=== PATIENT | female | born 1970 | race Two or more races ===

== ENCOUNTER 2020-09-18 07:15 | Outpatient (REF) | payer OTHER, SELFPAY ==
[2020-09-18 11:22] LABS: Hematocrit 39.7 % (37-47); Hemoglobin 12.8 g/dl (12.0-16.0); Mean Corpuscular HGB Conc 32.2 g/dl (31.0-35.0); Mean Corpuscular Volume 93.2 fL (80-98); Platelet Count 184 X10*3/uL (160-400); Red Blood Count 4.26 X10*6/uL (4.20-5.50); Red Cell Distribution Width 12.2 % (11.0-16.0)
[2020-09-18 11:30] LABS: Glucose Urine UA NEG (NEG); Leukocyte Esterase Urine NEG (NEG); Nitrite Urine NEG (NEG); PH 7.5 (5.0-8.0); Urine Blood NEG (NEG); Urine Ketones NEG (NEG); Urine Protein NEG (NEG-TRACE)
[2020-09-18 11:32] LABS: Appearance Urine CLEAR; Color Urine STRAW
[2020-09-18 11:42] LABS: Bacteria Urine TRACE /LPF; RBC Urine 0 /HPF (0); Squamous Epithelial Cell Urine 2+ /LPF; WBC Urine 0-2 /HPF (0-4)
[2020-09-18 11:43] LABS: Alanine Aminotransferase 23 U/L (0-31); Albumin Level 4.5 g/dL (3.5-5.0); Alkaline Phosphatase 76 U/L (39-117); Anion Gap 10 (12-20); Aspartate Amino Transferase 29 U/L (5-31); Bilirubin Total 0.5 mg/dL (0.0-1.0); Blood Urea Nitrogen 10 mg/dL (9-16); Calcium 9.5 mg/dL (8.4-10.2); Carbon Dioxide 32 mmol/L (22-29); Chloride 100 mmol/L (96-108); Cholesterol 246 mg/dL; Estimated Glomerular Filt Rate > 60; Glucose Fasting 92 mg/dL (60-99); HDL Cholesterol 77 mg/dL; LDL Cholesterol Calculated 151 mg/dl; Potassium 4.1 mmol/l (3.3-5.1); Sodium 138 mmol/L (135-145); Total Protein 7.5 g/dL (6.5-8.0); Triglycerides 90 mg/dL
[2020-09-18 12:11] LABS: Thyroid Stimulating Hormone 7.09 uIU/mL (0.32-4.0)
== END 2020-09-18 07:16 | disposition home or self-care (01) ==
LOC: HO.HMGCLDS 07:15
PROVIDERS: PCP Internal Medicine; Visit Provider Internal Medicine
DX: Z00.00 Encounter for general adult medical examination without abnormal findings (principal)
CPT/HCPCS: 36415; 80053; 80061; 81001; 84443; 85027

== ENCOUNTER 2020-12-22 08:26 | Outpatient (REF) | payer OTHER, SELFPAY ==
--- NOTE | ~2020-12-22 | US_ITS ---
EXAMINATION: US THYROID CLINICAL INFORMATION: Nontoxic goiter, unspecified COMPARISON: None TECHNIQUE: Linear transducer grayscale and color Doppler examination with attention to the region of the thyroid. FINDINGS: SIZE: Measurements of the thyroid lobes and nodules are given in sagittal, anteroposterior and transverse dimensions respectively. Right Thyroid Lobe: 4.14 x 0.99 x 1.01 cm, volume 2.18 mL. Parenchyma: The gland echotexture is heterogeneous. Thyroid vascularity is increased. Left Thyroid Lobe: 4.04 x 0.736 x 1.12 cm, volume 1.74 mL. Parenchyma: The gland echotexture is heterogeneous. Thyroid vascularity is increased. Isthmus: 0.26 cm in maximum AP dimension. Estimated total number of nodules greater than or equal to 1 cm: 0. No focal thyroid nodule is seen. NODES: No lymphadenopathy is seen in the tissue surrounding the thyroid gland. US/US thyroid IMPRESSION: Small slightly heterogeneous hypervascular thyroid gland. No focal nodule seen.
== END 2020-12-22 08:27 | disposition home or self-care (01) ==
LOC: HO.HMGCX 08:26
PROVIDERS: PCP Internal Medicine; Visit Provider Internal Medicine
DX: Z00.00 Encounter for general adult medical examination without abnormal findings (principal); E04.9 Nontoxic goiter, unspecified
CPT/HCPCS: 76536

== ENCOUNTER 2021-12-03 07:52 | Outpatient (REF) | payer OTHER, SELFPAY ==
[2021-12-03 11:47] LABS: Appearance Urine CLEAR; Color Urine YELLOW; Glucose Urine UA NEG (NEG); Leukocyte Esterase Urine TRACE (NEG); Nitrite Urine NEG (NEG); PH 7.5 (5.0-8.0); Urine Blood NEG (NEG); Urine Ketones NEG (NEG); Urine Protein NEG (NEG-TRACE)
[2021-12-03 11:57] LABS: Hematocrit 38.5 % (37.0-47.0); Hemoglobin 12.9 g/dl (12.0-16.0); Mean Corpuscular HGB Conc 33.5 g/dl (31.0-35.0); Mean Corpuscular Hemoglobin 30.6 pg (27.0-33.0); Mean Corpuscular Volume 91.4 fL (80.0-98.0); Mean Platelet Volume 10.7 fL (9.4-12.3); Platelet Count 219 X10*3/uL (160-400); Red Blood Count 4.21 X10*6/uL (4.20-5.50); Red Cell Distribution Width 12.1 % (11.0-16.0); White Blood Count 4.2 X10*3/uL (4.8-10.8)
[2021-12-03 12:00] LABS: RBC Urine 0-2 /HPF (0); WBC Urine 0-2 /HPF (0-4)
[2021-12-03 12:01] LABS: Squamous Epithelial Cell Urine 1+ /LPF
[2021-12-03 12:22] LABS: TSH reflex Free T4 1.64 uIU/mL (0.32-4.0); TSH reflex Free T4 (Prenatal) 1.64 uIU/mL (0.32-4.0)
[2021-12-03 12:30] LABS: Alanine Aminotransferase 21 U/L (0-31); Albumin Level 4.4 g/dL (3.5-5.0); Alkaline Phosphatase 77 U/L (39-117); Anion Gap 12 (12-20); Aspartate Amino Transferase 29 U/L (5-31); Bilirubin Total 0.8 mg/dL (0.0-1.0); Blood Urea Nitrogen 13 mg/dL (9-16); Carbon Dioxide 26 mmol/L (22-29); Chloride 101 mmol/L (96-108); Cholesterol 228 mg/dL; Estimated Glomerular Filt Rate > 60; Glucose Fasting 91 mg/dL (60-99); HDL Cholesterol 76 mg/dL; LDL Cholesterol Calculated 141 mg/dl; Potassium 4.4 mmol/L (3.3-5.1); Sodium 135 mmol/L (135-145); Total Protein 7.6 g/dL (6.5-8.0); Triglycerides 57 mg/dL
== END 2021-12-03 07:53 | disposition home or self-care (01) ==
LOC: HO.HMGCLDS 07:52
PROVIDERS: Visit Provider Internal Medicine
DX: Z00.00 Encounter for general adult medical examination without abnormal findings (principal); E04.9 Nontoxic goiter, unspecified; E78.5 Hyperlipidemia, unspecified
CPT/HCPCS: 36415; 80053; 80061; 81001; 84443; 85027

== ENCOUNTER 2021-12-12 11:51 | Outpatient (REF) | payer OTHER, SELFPAY ==
[2021-12-12 13:43] LABS: Appearance Urine CLEAR; Color Urine YELLOW; Glucose Urine UA NEG (NEG); Leukocyte Esterase Urine NEG (NEG); Nitrite Urine NEG (NEG); PH 7.5 (5.0-8.0); Specific Gravity - Urine 1.015 (1.005-1.025); Urine Blood NEG (NEG); Urine Ketones NEG (NEG); Urine Protein NEG (NEG-TRACE)
[2021-12-12 13:45] LABS: Hematocrit 37.1 % (37.0-47.0); Hemoglobin 12.4 g/dl (12.0-16.0); Mean Corpuscular HGB Conc 33.4 g/dl (31.0-35.0); Mean Corpuscular Hemoglobin 30.5 pg (27.0-33.0); Mean Corpuscular Volume 91.4 fL (80.0-98.0); Mean Platelet Volume 10.3 fL (9.4-12.3); Platelet Count 186 X10*3/uL (160-400); Red Blood Count 4.06 X10*6/uL (4.20-5.50); White Blood Count 4.4 X10*3/uL (4.8-10.8)
[2021-12-12 13:54] LABS: RBC Urine 0 /HPF (0); Squamous Epithelial Cell Urine 2+ /LPF; WBC Urine 0-2 /HPF (0-4)
[2021-12-12 14:03] LABS: Alanine Aminotransferase 20 U/L (0-31); Albumin Level 4.4 g/dL (3.5-5.0); Alkaline Phosphatase 79 U/L (39-117); Anion Gap 11 (12-20); Aspartate Amino Transferase 29 U/L (5-31); Bilirubin Total 0.7 mg/dL (0.0-1.0); Blood Urea Nitrogen 8 mg/dL (9-16); Calcium 9.9 mg/dL (8.4-10.2); Carbon Dioxide 30 mmol/L (22-29); Chloride 98 mmol/L (96-108); Cholesterol 210 mg/dL; Estimated Glomerular Filt Rate > 60; Glucose Fasting 87 mg/dL (60-99); HDL Cholesterol 68 mg/dL; LDL Cholesterol Calculated 128 mg/dl; Potassium 4.5 mmol/L (3.3-5.1); Sodium 134 mmol/L (135-145); Total Protein 7.3 g/dL (6.5-8.0); Triglycerides 71 mg/dL
[2021-12-12 14:25] LABS: Vitamin D 25-OH Total 40.4 ng/mL (>30)
[2021-12-12 14:31] LABS: Vitamin B12 527 pg/mL (200-900)
== END 2021-12-12 11:52 | disposition home or self-care (01) ==
LOC: HO.HMGCLDS 11:51
PROVIDERS: PCP Internal Medicine; Visit Provider Internal Medicine
DX: Z00.00 Encounter for general adult medical examination without abnormal findings (principal); E78.5 Hyperlipidemia, unspecified
CPT/HCPCS: 36415; 80053; 80061; 81001; 82306; 82607; 82746; 84443; 85027

== ENCOUNTER 2021-12-24 07:27 | Outpatient (REF) | payer OTHER, SELFPAY ==
[2021-12-24 11:37] LABS: Anion Gap 12 (12-20); Blood Urea Nitrogen 13 mg/dL (9-16); Calcium 9.8 mg/dL (8.4-10.2); Carbon Dioxide 27 mmol/L (22-29); Chloride 102 mmol/L (96-108); Estimated Glomerular Filt Rate > 60; Glucose Random 89 mg/dL (60-115); Potassium 4.3 mmol/L (3.3-5.1); Sodium 137 mmol/L (135-145)
== END 2021-12-24 07:28 | disposition home or self-care (01) ==
LOC: HO.HMGCLDS 07:27
PROVIDERS: Visit Provider Internal Medicine
DX: E87.1 Hypo-osmolality and hyponatremia (principal)
CPT/HCPCS: 36415; 80048

== ENCOUNTER 2022-07-26 12:09 | Outpatient (REF) | payer OTHER, SELFPAY ==
[2022-07-26 13:53] LABS: MANUAL DIFF FLAG NO
[2022-07-26 13:58] LABS: Basophils Absolute Auto 0.1 X10*3/uL (0.0-0.2); Basophils Percent Auto 0.8 % (0-2); Eosinophils Absolute Auto 0.6 X10*3/uL (0.0-0.4); Eosinophils Percent Auto 9.7 % (0-4); Hematocrit 37.8 % (37.0-47.0); Hemoglobin 12.7 g/dl (12.0-16.0); Lymphocytes Absolute Auto 1.6 X10*3/uL (1.2-4.9); Lymphocytes Percent Auto 24.8 % (20-40); Mean Corpuscular HGB Conc 33.6 g/dl (31.0-35.0); Mean Corpuscular Volume 89.2 fL (80.0-98.0); Mean Platelet Volume 10.5 fL (9.4-12.3); Monocytes Absolute Auto 0.5 X10*3/uL (0.1-1.2); Monocytes Percent Auto 7.8 % (2-11); Neutrophils Absolute Auto 3.6 x10*3/uL (2.0-8.3); Neutrophils Percent Auto 56.9 % (45-73); Platelet Count 211 X10*3/uL (160-400); Red Blood Count 4.24 X10*6/uL (4.20-5.50); Red Cell Distribution Width 11.9 % (11.0-16.0); White Blood Count 6.4 X10*3/uL (4.8-10.8)
[2022-07-26 14:24] LABS: Alanine Aminotransferase 17 U/L (0-31); Albumin Level 4.5 g/dL (3.5-5.0); Alkaline Phosphatase 85 U/L (39-117); Anion Gap 17 (12-20); Aspartate Amino Transferase 27 U/L (5-31); Bilirubin Total 0.8 mg/dL (0.0-1.0); Blood Urea Nitrogen 9 mg/dL (9-16); Calcium 9.9 mg/dL (8.4-10.2); Carbon Dioxide 25 mmol/L (22-29); Chloride 99 mmol/L (96-108); Cholesterol 222 mg/dL; Estimated Glomerular Filt Rate > 60; Glucose Fasting 88 mg/dL (60-99); HDL Cholesterol 73 mg/dL; LDL Cholesterol Calculated 139 mg/dl; Potassium 4.3 mmol/L (3.3-5.1); Sodium 137 mmol/L (135-145); Total Protein 7.5 g/dL (6.5-8.0); Triglycerides 50 mg/dL
[2022-07-26 14:43] LABS: TSH reflex Free T4 1.24 uIU/mL (0.32-4.0)
== END 2022-07-26 12:10 | disposition home or self-care (01) ==
LOC: HO.HMGCLDS 12:09
PROVIDERS: PCP Internal Medicine; Visit Provider Internal Medicine
DX: E87.1 Hypo-osmolality and hyponatremia (principal); E78.5 Hyperlipidemia, unspecified; E04.9 Nontoxic goiter, unspecified
CPT/HCPCS: 36415; 80053; 80061; 84443; 85025

== ENCOUNTER 2022-12-09 08:23 | Outpatient (REF) | payer OTHER, SELFPAY ==
[2022-12-09 12:43] LABS: Cholesterol 227 mg/dL; HDL Cholesterol 80 mg/dL; LDL Cholesterol Calculated 138 mg/dl; Triglycerides 47 mg/dL
[2022-12-09 12:49] LABS: TSH reflex Free T4 1.33 uIU/mL (0.32-4.0)
== END 2022-12-09 08:24 | disposition home or self-care (01) ==
LOC: HO.HMGCLDS 08:23
PROVIDERS: PCP Internal Medicine; Visit Provider Internal Medicine
DX: E04.9 Nontoxic goiter, unspecified (principal); E78.5 Hyperlipidemia, unspecified
CPT/HCPCS: 36415; 80061; 84443

== ENCOUNTER 2022-12-16 10:12 | Outpatient (REF) | payer OTHER, SELFPAY ==
[2022-12-16 12:27] LABS: Alanine Aminotransferase 18 U/L (0-31); Albumin Level 4.3 g/dL (3.5-5.0); Alkaline Phosphatase 78 U/L (39-117); Anion Gap 10 (12-20); Aspartate Amino Transferase 24 U/L (5-31); Bilirubin Total 0.6 mg/dL (0.0-1.0); Blood Urea Nitrogen 11 mg/dL (9-16); Calcium 9.3 mg/dL (8.4-10.2); Carbon Dioxide 27 mmol/L (22-29); Chloride 102 mmol/L (96-108); Estimated Glomerular Filt Rate > 60; Glucose Fasting 82 mg/dL (60-99); Potassium 3.9 mmol/L (3.3-5.1); Sodium 135 mmol/L (135-145)
[2022-12-16 12:44] LABS: Folate 13.3 ng/mL (> or = 4.0); Vitamin B12 863 pg/mL (200-900); Vitamin D 25-OH Total 35.7 ng/mL (>30)
== END 2022-12-16 10:13 | disposition home or self-care (01) ==
LOC: HO.HMGCLDS 10:12
PROVIDERS: PCP Internal Medicine; Visit Provider Internal Medicine
DX: E87.1 Hypo-osmolality and hyponatremia (principal); E53.8 Deficiency of other specified B group vitamins; E55.9 Vitamin D deficiency, unspecified
CPT/HCPCS: 36415; 80053; 82306; 82607; 82746

== ENCOUNTER 2022-12-16 11:09 | Outpatient (REF) | payer OTHER, SELFPAY ==
[2022-12-20 05:23] LABS: HPV mRNA E6/E7 Not Detected (Not Detected)
== END 2022-12-16 11:10 | disposition home or self-care (01) ==
LOC: HO.LNP 11:09
PROVIDERS: Visit Provider Internal Medicine
DX: Z01.419 Encounter for gynecological examination (general) (routine) without abnormal findings (principal); E53.8 Deficiency of other specified B group vitamins; E55.9 Vitamin D deficiency, unspecified
CPT/HCPCS: 87624; 88142

== ENCOUNTER 2023-08-11 09:17 | Outpatient (AMB) | payer OTHER, SELFPAY ==
[2023-08-11 09:30] VITALS: BP 110/74; PULSE 87; O2SAT 99; BMI 21.3
--- NOTE | 2023-08-11 09:30 | MHC.PC.OV ---
Vital Signs 08/11/23 09:30 Height 5 ft 7 in Weight 136 lb BMI 21.3 BP 110/74 Blood Pressure Location Rt brachial Position Sitting Pulse 87 Pulse Source Pulse Oximeter Pulse Oximetry (%) 99 Oxygen Delivery Method Room Air Intake Visit Reasons: Pre-op Cataract 08/18 Intake Note: Pt is here today for preop visit. Pt is having cataract surgery on 09/01/23 on L eye. Allergies No Known Allergies Allergy (Verified 08/11/23 09:31) Tobacco use date assessed: 08/11/23 Dental Screening Dental Screen Date: 08/11/23 Did you have a dental visit in the last 12 months?: Yes Did you have a dental problem in the last 6 months where you did not have access to dental care?: No Was dental information given to patient?: Patient has dentist HPI Pre-op Cataract 08/18 HPI Details Pt presents for preop cataract surgery. Pt's witnessed apnea episode. [facility] Medical History (Updated 08/11/23 @ 10:10 by Eli Iqbal MD) Hyperlipidemia Hypothyroidism Annual physical exam Surgical History No pertinent past surgical history Hx of colonoscopy Family History Father No problems noted. Mother Heart problem Household Members Other:: , 2 sons(28. 22) and 1 daughter( 19), [employer] student Housing: House Patient Tobacco Use Status: Never used Tobacco e-Cigarette/Vaping Use: Never Used Current occupational status: employed Cognitive needs: No Hearing needs: No Vision needs: Yes Questionnaire Thrive Questionnaire Date Thrive assessed: 12/16/22 AUDIT C Alcohol Use Questionnaire (AUDIT-C) 1. How often do you have a drink containing alcohol?: Never 3. How often do you have six or more drinks on one occasion?: Never Total Score: 0 TYRESE-7 AMB Questionnaire TYRESE-7 Date TYRESE - 7 assessed: 12/16/22 Source: Developed by Drs. Wilberto Anton, Amber Martinez, Daniel Trammell and colleagues, with an educational alisa from [employer]. Review of Systems Const All systems reviewed & are unremarkable except as noted in HPI and below Reports no additional complaints Eyes Reports no additional complaints ENT Reports no additional complaints Card Reports no additional complaints Resp Reports no additional complaints GI Reports no additional complaints Physical exam (Primary Care) Vital Signs: Last Vital Signs Pulse 87 08/11/23 09:30 BP 110/74 08/11/23 09:30 Pulse Ox 99 08/11/23 09:30 Oxygen Delivery Method Room Air 08/11/23 09:30 BMI result Body Mass Index 21.3 Tobacco/Smoking Status: Tobacco use Status Tobacco use date assessed 08/11/23 08/11/23 09:32 Patient Tobacco Use Status Never used Tobacco 08/11/23 09:32 e-Cigarette/Vaping Use Never Used 08/11/23 09:32 Thrive Assessment: Date of Thrive Assessment Date Thrive assessed 12/16/22 08/11/23 09:32 Const General: no acute distress HENMT Head: Yes normal to inspection Ears: hearing grossly normal bilaterally General nose exam: Normal external nose present Mouth: Normal oral and palatal mucosa present Throat: Yes posterior oropharynx normal Neck Neck: Yes no lymphadenopathy and Yes supple Resp Effort & Inspection: normal respiratory effort Auscultation: clear to auscultation bilaterally Cardio Rhythm: regular rhythm Heart sounds: S1 normal heart sound present GI Inspection: Yes normal to inspection Palpation (GI): Soft to palpation Percussion: Yes normal to percussion Auscultation: normal bowel sounds Assessment and Plan Assessment & Plan (1) Sleep apnea: Code(s): G47.30 - Sleep apnea, unspecified Plan: schedule home sleep studies (2) Goiter: Comment: hx of thyroid nudule bx>5 yrs ago Code(s): E04.9 - Nontoxic goiter, unspecified Plan: check thyroid US (3) Cataract: Code(s): H26.9 - Unspecified cataract Plan: Patient is medically cleared for cataract surgery. Orders: Orders RT home sleep study Today G47.30 - Sleep apnea, unspecified US thyroid Today E04.9 - Nontoxic goiter, unspecified Coding Level of Care Code Est Pt Level 4 (25955) Diagnoses Sleep apnea G47.30 Goiter E04.9 Cataract H26.9
== END 2023-08-11 10:13 | disposition home or self-care (01) ==
PROVIDERS: PCP Internal Medicine; Visit Provider Internal Medicine
DX: G47.30 Sleep apnea, unspecified (principal); E04.9 Nontoxic goiter, unspecified; H26.9 Unspecified cataract
CPT/HCPCS: 99214

== ENCOUNTER 2023-08-25 09:54 | Outpatient (REF) | payer OTHER, SELFPAY ==
--- NOTE | ~2023-08-25 | US_ITS ---
EXAMINATION: US THYROID CLINICAL INFORMATION: Nontoxic goiter, unspecified. COMPARISON: Thyroid ultrasound 12/22/2020. TECHNIQUE: Linear transducer grayscale and color Doppler examination with attention to the region of the thyroid. FINDINGS: SIZE: Measurements of the thyroid lobes and nodules are given in sagittal, anteroposterior and transverse dimensions respectively. Right Thyroid Lobe: 4.5 x 1.0 x 1.0 cm, volume 2.3 mL. Previously 4.1 x 1.0 x 1.0 cm, volume 2.2 mL. Parenchyma: The gland echotexture is heterogeneous. Thyroid vascularity is increased. Left Thyroid Lobe: 4.2 x 0.6 x 1.1 cm, volume 1.5 mL. Previously 4.0 x 0.7 x 1.1 cm, volume 1.7 mL. Parenchyma: The gland echotexture is heterogeneous. Thyroid vascularity is increased. Isthmus: 0.2 cm in maximum AP dimension. Previously 0.3 cm. No suspicious thyroid nodule is seen. NODES: No lymphadenopathy is seen in the tissue surrounding the thyroid gland. US/US thyroid IMPRESSION: Heterogeneous thyroid gland. No suspicious thyroid nodules. Diffusely heterogeneous, hypervascular thyroid gland. No suspicious thyroid nodule identified. ACR TI-RADS RECOMMENDATION REFERENCE: Ultrasound-guided fine-needle aspiration, follow up ultrasound, no further followup. * TR1 (0 point) and TR2 (2 points): No FNA or followup * TR3 (3 points): FNA if more than or equal to 2.5 cm in maximum dimension, follow up ultrasound in 1, 3 and 5 years if 1.5 to 2.4 cm in maximum dimension. * TR4 (4-6 points): FNA if more than or equal to 1.5 cm in maximum dimension, follow up ultrasound in 1, 2, 3 and 5 years if 1 to 1.4 cm in maximum dimension. * TR5 (more than or equal to 7 points): FNA if more than or equal to 1 cm in maximum dimension, follow up ultrasound every year for 5 years if 0.5 to 0.9 cm in maximum dimension. * TR3, TR4 or TR5 nodules that are below the size threshold for follow up receive no followup.
== END 2023-08-25 09:55 | disposition home or self-care (01) ==
LOC: HO.HMGCX 09:54
PROVIDERS: PCP Internal Medicine; Visit Provider Internal Medicine
DX: E04.9 Nontoxic goiter, unspecified (principal)
CPT/HCPCS: 76536

== ENCOUNTER 2023-12-10 08:02 | Outpatient (REF) | payer OTHER, SELFPAY ==
[2023-12-10 10:17] LABS: MANUAL DIFF FLAG NO
[2023-12-10 10:28] LABS: Basophils Absolute Auto 0.1 X10*3/uL (0.0-0.2); Eosinophils Absolute Auto 0.6 X10*3/uL (0.0-0.4); Eosinophils Percent Auto 12.4 % (0-4); Hematocrit 35.4 % (37.0-47.0); Hemoglobin 11.8 g/dl (12.0-16.0); Imm Gran Abs Auto 0.01 X10*3/uL (0.00-0.03); Imm Gran Pct Auto 0.2 % (0.0-0.4); Lymphocytes Absolute Auto 1.4 X10*3/uL (1.2-4.9); Mean Corpuscular HGB Conc 33.3 g/dl (31.0-35.0); Mean Corpuscular Hemoglobin 29.6 pg (27.0-33.0); Mean Corpuscular Volume 88.7 fL (80.0-98.0); Mean Platelet Volume 10.6 fL (9.4-12.3); Monocytes Absolute Auto 0.5 X10*3/uL (0.1-1.2); Monocytes Percent Auto 10.6 % (2-11); Neutrophils Absolute Auto 2.4 x10*3/uL (2.0-8.3); Neutrophils Percent Auto 47.8 % (45-73); Platelet Count 204 X10*3/uL (160-400); Red Blood Count 3.99 X10*6/uL (4.20-5.50); Red Cell Distribution Width 12.7 % (11.0-16.0); White Blood Count 5.1 X10*3/uL (4.8-10.8)
[2023-12-10 11:31] LABS: Alanine Aminotransferase 17 U/L (0-31); Albumin Level 4.2 g/dL (3.5-5.0); Alkaline Phosphatase 75 U/L (39-117); Anion Gap 9 (12-20); Aspartate Amino Transferase 26 U/L (5-31); Bilirubin Total 0.7 mg/dL (0.0-1.0); Blood Urea Nitrogen 10 mg/dL (9-16); Calcium 9.4 mg/dL (8.4-10.2); Carbon Dioxide 29 mmol/L (22-29); Chloride 100 mmol/L (96-108); Cholesterol 218 mg/dL (<200); Estimated Glomerular Filt Rate > 60; Glucose Fasting 79 mg/dL (60-99); HDL Cholesterol 81 mg/dL (>40); LDL Cholesterol Calculated 128 mg/dL (<100); Potassium 3.6 mmol/L (3.3-5.1); Sodium 134 mmol/L (135-145); Total Protein 7.2 g/dL (6.5-8.0); Triglycerides 48 mg/dL (<150)
[2023-12-10 11:40] LABS: TSH reflex Free T4 2.28 uIU/mL (0.32-4.0); Vitamin D 25-OH Total 33.5 ng/mL (>30)
== END 2023-12-10 08:03 | disposition home or self-care (01) ==
LOC: HO.HMGCLDS 08:02
PROVIDERS: PCP Internal Medicine; Visit Provider Internal Medicine
DX: Z00.00 Encounter for general adult medical examination without abnormal findings (principal); E78.5 Hyperlipidemia, unspecified; E55.9 Vitamin D deficiency, unspecified
CPT/HCPCS: 36415; 80053; 80061; 82306; 84443; 85025

== ENCOUNTER 2023-12-18 10:26 | Outpatient (AMB) | payer OTHER, SELFPAY ==
[2023-12-18 10:27] VITALS: BP 104/66; PULSE 80; O2SAT 96; BMI 21.1
--- NOTE | 2023-12-18 10:27 | MHC.PC.OV ---
Vital Signs 12/18/23 10:27 Height 5 ft 7 in Weight 135 lb BMI 21.1 BP 104/66 Blood Pressure Location Lt brachial Position Sitting Pulse 80 Pulse Source Pulse Oximeter Pulse Oximetry (%) 96 Oxygen Delivery Method Room Air Intake Visit Reasons: Annual PE Intake Note: Pt is here today for PE. Allergies No Known Allergies Allergy (Verified 12/18/23 10:30) Medication List - Last Reconciled 12/18/23 by Eli Iqbal MD levothyroxine 75 mcg PO DAILY Tobacco use date assessed: 12/18/23 Dental Screening Dental Screen Date: 12/18/23 Did you have a dental visit in the last 12 months?: Yes Did you have a dental problem in the last 6 months where you did not have access to dental care?: No Was dental information given to patient?: Patient has dentist HPI Annual PE HPI Details Patient presents for physical. She complains of increased urinary frequency and feeling of incomplete emptying the bladder. She reports chronic constipation. Patient denies hematochezia melena hematuria dysuria or urinary incontinence PFSH Medical History Hyperlipidemia Hypothyroidism Annual physical exam Surgical History No pertinent past surgical history Hx of colonoscopy Family History Father No problems noted. Mother Heart problem Social History Household Members Other:: , 2 sons(28. 22) and 1 daughter( 19), [employer] student Housing: House Patient Tobacco Use Status: Never used Tobacco e-Cigarette/Vaping Use: Never Used service: No Current occupational status: employed Cognitive needs: No Hearing needs: No Vision needs: Yes Questionnaire PHQ-9 Over the last 2 weeks, how often have you been bothered by any of the following problems? 1. Little interest or pleasure in doing things: not at all 2. Feeling down, depressed, or hopeless: not at all 3. Trouble falling or staying asleep, or sleeping too much: not at all 4. Feeling tired or having little energy: not at all 5. Poor appetite or overeating: not at all 6. Feeling bad about yourself - or that you are a failure or have let yourself or your family down: not at all 7. Trouble concentrating on things, such as reading the newspaper or watching television: not at all 8. Moving or speaking so slowly that other people could have noticed. Or the opposite - being so fidgety or restless that you have been moving around a lot more than usual: not at all 9. Thoughts that you would be better off or of hurting yourself in some way: not at all Total score: 0 Depression Screening Interpretation: Negative Depression Screening Done: Yes Source: Developed by Drs. Wilberto Anton, Amber Martinez, Daniel Trammell and colleagues, with an educational alisa from [employer]. Thrive Questionnaire Date Thrive assessed: 12/18/23 I am a: Patient What is your living situation today?: I have a steady place to live Within the past 12 months, did the food you bought not last and you didn't have the money to get more?: Never true Within the past 12 months, did you worry whether your food would run out before you got money to buy more?: Never true Do you have trouble paying for medicines?: No Do you have trouble getting transportation to medical appointments?: No Do you have trouble paying your heating and electricity bill?: No Do you have trouble taking care of your child, family member or friend?: No Do you have trouble with day-to-day activities such as bathing, preparing meals, shopping, managing finances, etc.?: No Are you currently unemployed and looking for a job?: No Are you interested in more education?: No Please select the resources that you would like help with: None THRIVE Score: 0 AUDIT C Alcohol Use Questionnaire (AUDIT-C) 1. How often do you have a drink containing alcohol?: Never 3. How often do you have six or more drinks on one occasion?: Never Total Score: 0 TYRESE-7 AMB Questionnaire TYRESE-7 Date TYRESE - 7 assessed: 12/18/23 Feeling nervous, anxious, or on edge: 0 = Not at all Not being able to stop or control worryin = Not at all Worrying too much about different things: 0 = Not at all Trouble relaxin = Not at all Being so restless that it is hard to sit still: 0 = Not at all Becoming easily annoyed or irritable: 0 = Not at all Feeling afraid as if something awful might happen: 0 = Not at all Total TYRESE-7 score (0-4 normal; 5-9 mild; 10-14 moderate; 15-21 severe): 0 Source: Developed by Drs. Wilberto Anton, Amber Martinez, Daniel Trammell and colleagues, with an educational alisa from [employer]. Review of Systems Const All systems reviewed & are unremarkable except as noted in HPI and below Reports no additional complaints Eyes Reports no additional complaints ENT Reports no additional complaints Card Reports no additional complaints Resp Reports no additional complaints GI Reports no additional complaints Reports no additional complaints Physical exam (Primary Care) Vital Signs: Last Vital Signs Pulse 80 12/18/23 10:27 BP 104/66 12/18/23 10:27 Pulse Ox 96 12/18/23 10:27 Oxygen Delivery Method Room Air 12/18/23 10:27 BMI result Body Mass Index 21.1 Tobacco/Smoking Status: Tobacco use Status Tobacco use date assessed 12/18/23 12/18/23 10:30 Patient Tobacco Use Status Never used Tobacco 12/18/23 10:30 e-Cigarette/Vaping Use Never Used 12/18/23 10:30 PHQ-9: PHQ-9 Score PHQ-9: Total score 0 12/18/23 10:33 Depression Screening Interpretation: Negative Thrive Assessment: Date of Thrive Assessment Date Thrive assessed 12/18/23 12/18/23 10:33 Const General: no acute distress HENMT Head: Yes normal to inspection Ears: hearing grossly normal bilaterally General nose exam: Normal external nose present Mouth: Normal oral and palatal mucosa present Throat: Yes posterior oropharynx normal Eyes General: appearance normal, both eyes and all related structures Neck Neck: Yes no lymphadenopathy and Yes supple Resp Effort & Inspection: normal respiratory effort Auscultation: clear to auscultation bilaterally Cardio Rhythm: regular rhythm Heart sounds: S1 normal heart sound present and S2 normal heart sound present GI Inspection: Yes normal to inspection Palpation (GI): Soft to palpation Percussion: Yes normal to percussion Auscultation: normal bowel sounds Assessment and Plan Assessment & Plan (1) Urinary frequency: Code(s): R35.0 - Frequency of micturition Plan: Check UA and bladder scan to rule out urinary retention., Kegler's exercises discussed with the patient (2) Anemia: Code(s): D64.9 - Anemia, unspecified Plan: For borderline low hemoglobin level iron studies will be obtained. The patient's iron deficiency repeat colonoscopy will be recommended (3) Hyperlipidemia: Code(s): E78.5 - Hyperlipidemia, unspecified Plan: Continue low-cholesterol diet (4) Mammogram declined: Comment: 01/06, negative breast ultrasound in [place] 09/06 Code(s): Z53.20 - Procedure and treatment not carried out because of patient's decision for unspecified reasons (5) Annual physical exam: Code(s): Z00.00 - Encounter for general adult medical examination without abnormal findings Plan: Well-balanced diet regular physical activity discussed with the patient. (6) Normal Pap smear: Comment: 01/05 Code(s): Z12.4 - Encounter for screening for malignant neoplasm of cervix Orders: Orders US bladder Today R35.0 - Frequency of micturition Complete Blood Count Auto Diff 6 Months D64.9 - Anemia, unspecified, E78.5 - Hyperlipidemia, unspecified Comprehensive [place]. Panel Fast 6 Months D64.9 - Anemia, unspecified, E78.5 - Hyperlipidemia, unspecified Comprehensive [place]. Panel Fast 1 Year D64.9 - Anemia, unspecified, E53.8 - Deficiency of other specified B group vitamins, E78.5 - Hyperlipidemia, unspecified, Z00.00 - Encounter for general adult medical examination without abnormal findings Complete Blood Count Auto Diff 1 Year D64.9 - Anemia, unspecified, E53.8 - Deficiency of other specified B group vitamins, E78.5 - Hyperlipidemia, unspecified, Z00.00 - Encounter for general adult medical examination without abnormal findings UA w Microscopic Today R35.0 - Frequency of micturition IRON PROFILE Today D64.9 - Anemia, unspecified Vitamin B12 and Folate Today D64.9 - Anemia, unspecified Lipid Panel 6 Months D64.9 - Anemia, unspecified, E78.5 - Hyperlipidemia, unspecified Lipid Panel 1 Year D64.9 - Anemia, unspecified, E53.8 - Deficiency of other specified B group vitamins, E78.5 - Hyperlipidemia, unspecified, Z00.00 - Encounter for general adult medical examination without abnormal findings TSH reflex Free T4 1 Year D64.9 - Anemia, unspecified, E53.8 - Deficiency of other specified B group vitamins, E78.5 - Hyperlipidemia, unspecified, Z00.00 - Encounter for general adult medical examination without abnormal findings IRON PROFILE 1 Year D64.9 - Anemia, unspecified, E53.8 - Deficiency of other specified B group vitamins, E78.5 - Hyperlipidemia, unspecified, Z00.00 - Encounter for general adult medical examination without abnormal findings Coding Level of Care Code Est Pt Prev Care 40-64y(42750) Diagnoses Urinary frequency R35.0 Anemia D64.9 Hyperlipidemia E78.5 Mammogram declined Z53.20 Annual physical exam Z00.00 Normal Pap smear Z12.4
== END 2023-12-18 11:09 | disposition home or self-care (01) ==
PROVIDERS: Visit Provider Internal Medicine
DX: R35.0 Frequency of micturition (principal); D64.9 Anemia, unspecified; E78.5 Hyperlipidemia, unspecified; Z53.20 Procedure and treatment not carried out because of patient's decision for unspecified reasons; Z00.00 Encounter for general adult medical examination without abnormal findings; Z12.4 Encounter for screening for malignant neoplasm of cervix
CPT/HCPCS: 99396

== ENCOUNTER 2023-12-18 10:54 | Outpatient (REF) | payer OTHER, SELFPAY ==
[2023-12-18 13:22] LABS: Iron 98 mcg/dL (30-160); Percent Iron Saturation 34 % (15-50); Total Iron Binding Capacity 290 mcg/dL (228-428); Unsaturated Iron Binding 192 ug/dL
[2023-12-18 13:38] LABS: Appearance Urine Clear; Color Urine Yellow; Glucose Urine UA Negative (Negative); Leukocyte Esterase Urine Negative (Negative); Nitrite Urine Negative (Negative); PH 6.5 (5.0-9.0); Urine Blood Negative (Negative); Urine Ketones Negative (Negative); Urine Protein Negative (Neg-Trace)
[2023-12-18 13:44] LABS: Bacteria Urine None Seen (None Seen); Hyaline Casts Urine 0-2 /LPF (0-2); RBC Urine 0-2 /HPF (0-2); Squamous Epithelial Cell Urine 0-2 /HPF (0-2); WBC Urine 0-5 /HPF (0-5)
[2023-12-18 13:54] LABS: Folate 10.9 ng/mL (> or = 4.0); Vitamin B12 866 pg/mL (200-900)
== END 2023-12-18 10:55 | disposition home or self-care (01) ==
LOC: HO.HMGCLDS 10:54
PROVIDERS: PCP Internal Medicine; Visit Provider Internal Medicine
DX: R35.0 Frequency of micturition (principal); D64.9 Anemia, unspecified
CPT/HCPCS: 36415; 81001; 82607; 82746; 83540

== ENCOUNTER 2024-01-05 08:50 | Outpatient (REF) | payer OTHER, SELFPAY ==
--- NOTE | ~2024-01-05 | US_ITS ---
EXAMINATION: US PELVIS LIMITED (BLADDER) CLINICAL INFORMATION: Frequency of micturition. Urinary retention. COMPARISON: None available. TECHNIQUE: Real-time imaging of the bladder. FINDINGS: BLADDER: Well distended and normal. Bilateral ureteral jets are demonstrated. Prevoid bladder volume is 186 mL. Postvoid bladder volume is 5 mL. Some views of the superior bladder were limited due to highly shadowing bowel. US/US bladder IMPRESSION: No significant post void residual.
== END 2024-01-05 08:51 | disposition home or self-care (01) ==
LOC: HO.HMGCX 08:50
PROVIDERS: PCP Internal Medicine; Visit Provider Internal Medicine
DX: R35.0 Frequency of micturition (principal)
CPT/HCPCS: 76857

== ENCOUNTER 2024-04-12 11:01 | Outpatient (AMB) | payer OTHER, SELFPAY ==
--- NOTE | 2024-04-12 11:02 | MHC.PC.OV ---
Vital Signs 04/12/24 11:03 Height 5 ft 7 in Weight 135 lb BMI 21.1 BP 112/74 Blood Pressure Location Rt brachial Position Sitting Pulse 70 Pulse Source Pulse Oximeter Pulse Oximetry (%) 98 Oxygen Delivery Method Room Air Intake Visit Reasons: Follow up Intake Note: Pt is here today for a follow up visit. Allergies No Known Allergies Allergy (Verified 04/12/24 11:07) Medication List - Last Reconciled 04/12/24 by Eli Iqbal MD levothyroxine 75 mcg PO DAILY Tobacco use date assessed: 04/12/24 Dental Screening Dental Screen Date: 12/18/23 HPI Follow up HPI Details Patient presents complaining of bilateral tingling sensation in the thumbs, 2nd and 3rd fingers on and off and occasionally sensation of electric shock from a left elbow to 4th and 5th fingers. 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 [facility] Medical History Hypothyroidism Hyperlipidemia Annual physical exam Surgical History No pertinent past surgical history Hx of colonoscopy Family History Father No problems noted. Mother Heart problem Social History Household Members Other:: , 2 sons(28. 22) and 1 daughter( 19), [employer] student Housing: House Patient Tobacco Use Status: Never used Tobacco e-Cigarette/Vaping Use: Never Used service: No Current occupational status: employed Cognitive needs: No Hearing needs: No Vision needs: Yes Questionnaire Thrive Questionnaire Date Thrive assessed: 12/18/23 AUDIT C Alcohol Use Questionnaire (AUDIT-C) 1. How often do you have a drink containing alcohol?: Never 3. How often do you have six or more drinks on one occasion?: Never Total Score: 0 TYRESE-7 AMB Questionnaire TYRESE-7 Date TYRESE - 7 assessed: 12/18/23 Source: Developed by Drs. Wilberto Anton, Amber Martinez, Daniel Trammell and colleagues, with an educational alisa from [employer]. Review of Systems Const All systems reviewed & are unremarkable except as noted in HPI and below ENT Reports no additional complaints Card Reports no additional complaints Resp Reports no additional complaints GI Reports no additional complaints Reports no additional complaints Physical exam (Primary Care) Vital Signs: Last Vital Signs Pulse 70 04/12/24 11:03 BP 112/74 04/12/24 11:03 Pulse Ox 98 04/12/24 11:03 Oxygen Delivery Method Room Air 04/12/24 11:03 BMI result Body Mass Index 21.1 Tobacco/Smoking Status: Tobacco use Status Tobacco use date assessed 04/12/24 04/12/24 11:08 Patient Tobacco Use Status Never used Tobacco 04/12/24 11:08 e-Cigarette/Vaping Use Never Used 04/12/24 11:04 Thrive Assessment: Date of Thrive Assessment Date Thrive assessed 12/18/23 04/12/24 11:04 HENMT Head: Yes normal to inspection Ears: hearing grossly normal bilaterally Mouth: Normal oral and palatal mucosa present Resp Effort & Inspection: normal respiratory effort Auscultation: clear to auscultation bilaterally Cardio Rhythm: regular rhythm Heart sounds: S1 normal heart sound present and S2 normal heart sound present GI Inspection: Yes normal to inspection Palpation (GI): Soft to palpation Extrem Right upper extremity: wrist Details: Tinel's negative and Phalen's negative Left upper extremity: wrist Assessment and Plan Assessment & Plan (1) Anemia: Code(s): D64.9 - Anemia, unspecified Plan: Monitor CBC iron count and B12 level. (2) Hypothyroidism: Code(s): E03.9 - Hypothyroidism, unspecified Plan: Continue levothyroxine (3) Carpal tunnel syndrome on both sides: Code(s): G56.03 - Carpal tunnel syndrome, bilateral upper limbs Plan: Patient was advised to use wrist splints at night if the symptoms persist she will be referred for nerve conduction study Orders: Orders Complete Blood Count Auto Diff Today D64.9 - Anemia, unspecified IRON PROFILE Today D64.9 - Anemia, unspecified Comprehensive [place]. Panel Fast Today D64.9 - Anemia, unspecified TSH reflex Free T4 Today E03.9 - Hypothyroidism, unspecified Coding Level of Care Code Est Pt Level 3 (96434) Diagnoses Anemia D64.9 Hypothyroidism E03.9 Carpal tunnel syndrome on both sides G56.03
[2024-04-12 11:03] VITALS: BP 112/74; PULSE 70; O2SAT 98; BMI 21.1
== END 2024-04-12 12:34 | disposition home or self-care (01) ==
LOC: HO.HMGC 11:02
PROVIDERS: PCP Internal Medicine; Visit Provider Internal Medicine
DX: D64.9 Anemia, unspecified (principal); E03.9 Hypothyroidism, unspecified; G56.03 Carpal tunnel syndrome, bilateral upper limbs
CPT/HCPCS: 99213

== ENCOUNTER 2024-04-12 11:57 | Outpatient (REF) | payer OTHER, SELFPAY ==
[2024-04-12 13:29] LABS: MANUAL DIFF FLAG NO
[2024-04-12 13:49] LABS: Basophils Absolute Auto 0.1 X10*3/uL (0.0-0.2); Eosinophils Absolute Auto 0.6 X10*3/uL (0.0-0.4); Hematocrit 38.2 % (37.0-47.0); Hemoglobin 12.9 g/dl (12.0-16.0); Imm Gran Abs Auto 0.01 X10*3/uL (0.00-0.03); Imm Gran Pct Auto 0.2 % (0.0-0.4); Lymphocytes Absolute Auto 1.2 X10*3/uL (1.2-4.9); Lymphocytes Percent Auto 22.8 % (20-40); Mean Corpuscular HGB Conc 33.8 g/dl (31.0-35.0); Mean Corpuscular Hemoglobin 30.1 pg (27.0-33.0); Mean Corpuscular Volume 89.3 fL (80.0-98.0); Mean Platelet Volume 10.3 fL (9.4-12.3); Monocytes Absolute Auto 0.6 X10*3/uL (0.1-1.2); Monocytes Percent Auto 11.2 % (2-11); Neutrophils Absolute Auto 2.7 x10*3/uL (2.0-8.3); Neutrophils Percent Auto 53.8 % (45-73); Platelet Count 215 X10*3/uL (160-400); Red Blood Count 4.28 X10*6/uL (4.20-5.50); Red Cell Distribution Width 12.5 % (11.0-16.0); White Blood Count 5.1 X10*3/uL (4.8-10.8)
[2024-04-12 14:18] LABS: Alanine Aminotransferase 22 U/L (0-31); Albumin Level 4.3 g/dL (3.5-5.0); Alkaline Phosphatase 80 U/L (39-117); Anion Gap 10 (12-20); Aspartate Amino Transferase 25 U/L (5-31); Bilirubin Total 0.5 mg/dL (0.0-1.0); Blood Urea Nitrogen 12 mg/dL (9-16); Carbon Dioxide 27 mmol/L (22-29); Chloride 104 mmol/L (96-108); Estimated Glomerular Filt Rate > 60; Glucose Fasting 97 mg/dL (60-99); Iron 82 mcg/dL (30-160); Percent Iron Saturation 28 % (15-50); Sodium 137 mmol/L (135-145); Total Iron Binding Capacity 289 mcg/dL (228-428); Total Protein 7.4 g/dL (6.5-8.0); Unsaturated Iron Binding 207 ug/dL
[2024-04-12 14:34] LABS: TSH reflex Free T4 2.46 uIU/mL (0.32-4.0)
== END 2024-04-12 11:58 | disposition home or self-care (01) ==
LOC: HO.HMGCLDS 11:57
PROVIDERS: PCP Internal Medicine; Visit Provider Internal Medicine
DX: E03.9 Hypothyroidism, unspecified (principal); D64.9 Anemia, unspecified
CPT/HCPCS: 36415; 80053; 83540; 84443; 85025

== ENCOUNTER 2024-06-18 09:40 | Outpatient (REF) | payer OTHER, SELFPAY ==
[2024-06-18 13:03] LABS: MANUAL DIFF FLAG NO
[2024-06-18 13:10] LABS: Basophils Absolute Auto 0.1 X10*3/uL (0.0-0.2); Eosinophils Absolute Auto 0.6 X10*3/uL (0.0-0.4); Eosinophils Percent Auto 11.8 % (0-4); Hematocrit 34.5 % (37.0-47.0); Hemoglobin 11.6 g/dl (12.0-16.0); Imm Gran Abs Auto 0.01 X10*3/uL (0.00-0.03); Imm Gran Pct Auto 0.2 % (0.0-0.4); Lymphocytes Absolute Auto 1.2 X10*3/uL (1.2-4.9); Lymphocytes Percent Auto 22.9 % (20-40); Mean Corpuscular HGB Conc 33.6 g/dl (31.0-35.0); Mean Corpuscular Hemoglobin 30.1 pg (27.0-33.0); Mean Corpuscular Volume 89.4 fL (80.0-98.0); Mean Platelet Volume 10.4 fL (9.4-12.3); Monocytes Absolute Auto 0.5 X10*3/uL (0.1-1.2); Monocytes Percent Auto 9.7 % (2-11); Neutrophils Absolute Auto 2.8 x10*3/uL (2.0-8.3); Neutrophils Percent Auto 54.4 % (45-73); Platelet Count 199 X10*3/uL (160-400); Red Blood Count 3.86 X10*6/uL (4.20-5.50); White Blood Count 5.2 X10*3/uL (4.8-10.8)
[2024-06-18 13:50] LABS: Alanine Aminotransferase 30 U/L (0-31); Albumin Level 4.1 g/dL (3.5-5.0); Alkaline Phosphatase 75 U/L (39-117); Anion Gap 12 (12-20); Aspartate Amino Transferase 37 U/L (5-31); Bilirubin Total 0.8 mg/dL (0.0-1.0); Blood Urea Nitrogen 8 mg/dL (9-16); Calcium 9.3 mg/dL (8.4-10.2); Carbon Dioxide 27 mmol/L (22-29); Chloride 100 mmol/L (96-108); Cholesterol 221 mg/dL (<200); Estimated Glomerular Filt Rate > 60; Glucose Fasting 75 mg/dL (60-99); HDL Cholesterol 80 mg/dL (>40); LDL Cholesterol Calculated 133 mg/dL (<100); Potassium 4.1 mmol/L (3.3-5.1); Sodium 135 mmol/L (135-145); Triglycerides 44 mg/dL (<150)
== END 2024-06-18 09:41 | disposition home or self-care (01) ==
LOC: HO.HMGCLDS 09:40
PROVIDERS: PCP Internal Medicine; Visit Provider Internal Medicine
DX: D64.9 Anemia, unspecified (principal); E78.5 Hyperlipidemia, unspecified
CPT/HCPCS: 36415; 80053; 80061; 85025

== ENCOUNTER 2024-12-13 12:21 | Outpatient (AMB) | payer OTHER, SELFPAY ==
--- NOTE | 2024-12-13 12:32 | A.OFFPC_ITS ---
Vital Signs 12/13/24 12:33 Height 5 ft 7 in Weight 137 lb BMI 21.5 BP 110/70 Blood Pressure Location Rt brachial Position Sitting Respiration 18 Pulse 80 Pulse Source Pulse Oximeter Temp 98.6 F Temp Source Oral Pulse Oximetry (%) 98 Oxygen Delivery Method Room Air Intake Visit Reasons: Headache Intake Note: Pt is here today for a sick visit. Pt c/o headaches on the back of her head for 6 months now. Allergies No Known Allergies Allergy (Verified 12/13/24 12:43) Medication List - Last Reconciled 12/13/24 by Eli Iqbal MD levothyroxine 75 mcg PO DAILY Tobacco use date assessed: 12/13/24 Dental Screening Dental Screen Date: 12/13/24 Did you have a dental visit in the last 12 months?: Yes Did you have a dental problem in the last 6 months where you did not have access to dental care?: No Was dental information given to patient?: Patient has dentist HPI Headache HPI Details Pt presents c/o occipital VALENZUELA pressure like lasting 20 min on and off for 6 months. Patient denies change in the vision nausea vomiting weakness numbness in extremities or change in balance. [facility] Medical History Hypothyroidism Hyperlipidemia Annual physical exam Surgical History No pertinent past surgical history Hx of colonoscopy Family History Father No problems noted. Mother Heart problem Social History Household Members Other:: , 2 sons(28. 22) and 1 daughter( 19), [employer] student Housing: House Patient Tobacco Use Status: Never used Tobacco e-Cigarette/Vaping Use: Never Used service: No Current occupational status: employed Cognitive needs: No Hearing needs: No Vision needs: Yes Questionnaire Thrive Questionnaire Date Thrive assessed: 12/18/23 AUDIT C Alcohol Use Questionnaire (AUDIT-C) 1. How often do you have a drink containing alcohol?: Never 3. How often do you have six or more drinks on one occasion?: Never Total Score: 0 TYRESE-7 AMB Questionnaire TYRESE-7 Date TYRESE - 7 assessed: 12/18/23 Source: Developed by Drs. Wilberto Anton, Amber Martinez, Daniel Trammell and colleagues, with an educational alisa from [employer]. Review of Systems Const All systems reviewed & are unremarkable except as noted in HPI and below Eyes Reports no additional complaints ENT Reports no additional complaints Card Reports no additional complaints Resp Reports no additional complaints GI Reports no additional complaints Reports no additional complaints Physical exam (Primary Care) Vital Signs: Last Vital Signs Temp 98.6 F 12/13/24 12:33 Pulse 80 12/13/24 12:33 Resp 18 12/13/24 12:33 BP 110/70 12/13/24 12:33 Pulse Ox 98 12/13/24 12:33 Oxygen Delivery Method Room Air 12/13/24 12:33 BMI result Body Mass Index 21.5 Tobacco/Smoking Status: Tobacco use Status Tobacco use date assessed 12/13/24 12/13/24 12:43 Patient Tobacco Use Status Never used Tobacco 12/13/24 12:43 e-Cigarette/Vaping Use Never Used 12/13/24 12:33 Thrive Assessment: Date of Thrive Assessment Date Thrive assessed 12/18/23 12/13/24 12:33 Const General: no acute distress HENMT Head: Yes normal to inspection Face and sinus: Yes normal facial exam Mouth: Normal oral and palatal mucosa present Throat: Yes posterior oropharynx normal Neck Neck: Yes no lymphadenopathy and Yes supple Resp Effort & Inspection: normal respiratory effort Auscultation: clear to auscultation bilaterally Cardio Rhythm: regular rhythm Heart sounds: S1 normal heart sound present and S2 normal heart sound present GI Inspection: Yes normal to inspection Palpation (GI): Soft to palpation Neuro Cranial nerves: Yes CN's II-XII intact bilaterally Motor exam (neuro): 5/5 motor strength present throughout Coordination: [id number]-[id number] test normal Romberg Test: Negative Coding Level of Care Code Est Pt Level 4 (09066) Diagnoses Hypothyroidism E03.9 Hyperlipidemia E78.5 Ovarian cyst N83.209 Tension headache G44.209 Assessment & Plan Assessment & Plan (1) Hypothyroidism: Code(s): E03.9 - Hypothyroidism, unspecified Category: Medical Plan: Continue levothyroxine for fasting blood work (2) Hyperlipidemia: Code(s): E78.5 - Hyperlipidemia, unspecified Category: Medical Plan: Continue low-cholesterol diet (3) Ovarian cyst: Code(s): N83.209 - Unspecified ovarian cyst, unspecified side Category: Medical Plan: For history of ovarian cyst obtain pelvic ultrasound (4) Tension headache: Code(s): G44.209 - Tension-type headache, unspecified, not intractable Category: Medical Plan: Stress management discussed with the patient, obtain blood work Orders: Orders TSH reflex Free T4 Today E03.9 - Hypothyroidism, unspecified, E53.8 - Deficiency of other specified B group vitamins, E55.9 - Vitamin D deficiency, unspecified, E78.5 - Hyperlipidemia, unspecified Lipid Panel Today E03.9 - Hypothyroidism, unspecified, E53.8 - Deficiency of other specified B group vitamins, E55.9 - Vitamin D deficiency, unspecified, E78.5 - Hyperlipidemia, unspecified Vitamin D 25-OH Total Today E03.9 - Hypothyroidism, unspecified, E53.8 - Deficiency of other specified B group vitamins, E55.9 - Vitamin D deficiency, unspecified, E78.5 - Hyperlipidemia, unspecified Cyclic Citrullinated Peptide Today E03.9 - Hypothyroidism, unspecified, E53.8 - Deficiency of other specified B group vitamins, E55.9 - Vitamin D deficiency, unspecified, E78.5 - Hyperlipidemia, unspecified US pelvic and transvaginal Today N83.209 - Unspecified ovarian cyst, unspecified side Comprehensive [place]. Panel Fast Today E03.9 - Hypothyroidism, unspecified, E53.8 - Deficiency of other specified B group vitamins, E55.9 - Vitamin D deficiency, unspecified, E78.5 - Hyperlipidemia, unspecified Complete Blood Count Auto Diff Today E03.9 - Hypothyroidism, unspecified, E53.8 - Deficiency of other specified B group vitamins, E55.9 - Vitamin D deficiency, unspecified, E78.5 - Hyperlipidemia, unspecified Vitamin B12 and Folate Today E03.9 - Hypothyroidism, unspecified, E53.8 - Deficiency of other specified B group vitamins, E55.9 - Vitamin D deficiency, unspecified, E78.5 - Hyperlipidemia, unspecified Rheumatoid Factor Today E03.9 - Hypothyroidism, unspecified, E53.8 - Deficiency of other specified B group vitamins, E55.9 - Vitamin D deficiency, unspecified, E78.5 - Hyperlipidemia, unspecified UA w Microscopic Today R35.0 - Frequency of micturition
[2024-12-13 12:33] VITALS: BP 110/70; PULSE 80; RESP 18; TEMP 37; O2SAT 98; BMI 21.5
--- OUTSIDE RECORDS SUMMARY | 2024-12-13 13:59 | XMS_ITS | Data Portability ---
Author Organization [place] - [facility],, ALISA ARZOLA MD Address [address] [facility] [address] [place] [address] Care Team Providers Care Sap Integration Architect Name Role Phone NISREEN ARAIZA Primary Care Provider [phone] Assessment No assessment recorded. Plan of Treatment Reminders Order Date Submit Date Provider Last Modified By Organization Details Last Modified Time Details Appointments None recorded. Lab cytology report, thin prep, smear or scraping, cervical or vaginal 2023 024 BEENA [facility] (Centralized Electronic Ordering - All Locations), Patient Can Go To The Location Of Their Choice, [id number] 4 14:06:27 hemoglobi n, gastroint estinal, stool 2023 024 [email or web address] 1 In-Office Order, Internal Use Only DO Not Attach Compendium DO Not Attach Compendium, Do Not Delete/merge, [id number] 13:23:58 pap test, thinprep, cervical 2022 023 [facility] (Centralized Electronic Ordering - All Locations), Patient Can Go To The Location Of Their Choice, [id number] 3 10:38:08 fecal occult blood, stool 2022 023 [email or web address] 1 In-Office Order, Internal Use Only DO Not Attach Compendium DO Not Attach Compendium, Do Not Delete/merge, [id number] 09:22:35 pap test, thinprep, cervical 2021 022 [email or web address] [facility], Cytopathology Service, [address] [place] [address], [address], 2 07:59:53 fecal occult blood, stool 2021 022 [email or web address] 1 In-Office Order, Internal Use Only DO Not Attach Compendium DO Not Attach Compendium, Do Not Delete/merge, [id number] 08:23:26 pap test, thinprep, cervical 2019 020 [email or web address] [facility], Cytopathology Service, [address] [place], [address], 0 08:23:10 fecal occult blood, stool 2019 020 [email or web address] In-Office Order, Internal Use Only DO Not Attach Compendium DO Not Attach Compendium, Do Not Delete/merge, [id number] 0 08:23:10 pap test, thinprep, cervical [address] [facility], Cytopathology Service, [address] [place], [address], 9 08:16:24 fecal occult blood, stool 2018 019 [email or web address] In-Office Order, Internal Use Only DO Not Attach Compendium DO Not Attach Compendium, Do Not Delete/merge, [id number] 07:33:04 Referral None recorded. Procedures None recorded. Surgeries None recorded. Imaging MAMMO, screening , digital, bilateral - Breast Aspiratio n and/or Biopsy if needed 2023 024 [email or web address] [facility] Orders, [address], [address], [place], [address], 4 14:31:08 MAMMO, screening , digital, bilateral - Breast Aspiratio n and/or Biopsy if needed 2022 023 [email or web address] [facility] Orders, [address], [address], [place], [address], 4 09:37:58 MAMMO, screening , digital, bilateral 2021 022 [facility] Orders, [address], [place], [address], 3 07:48:17 MAMMO, screening , digital, bilateral 2019 020 [facility] (Mammography), [address] , [place], [address], 2 07:45:13 MAMMO, screening , digital, bilateral 2018 019 [facility] Orders, [address], [place], [address], 9 11:09:44 Medication Orders triamcino lone acetonide 0.1 % topical ointment 2023 024 [facility], [address] [place], [address], 4 13:23:58 triamcino lone acetonide 0.1 % topical ointment [address] [facility], [address] [place], [address], 4 13:05:12 triamcino lone acetonide 0.1 % topical ointment [address] [facility] [address], [address] [place], [address], 4 13:05:12 Patient TargetsNo targets recorded. 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 Paps always normal. No menses since 09/2017. No vasomotor symptoms. 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 She is originally from [place]. , has two sons, out of house now, and a 17 year old daughter. She appears to be doing well. She notes a history of perirectal itching on and off for years. On exam she has mild lichen sclerosis changes in the perineum just above the rectum. This is where she has the pruritus she notes. RX Dameonstocort, call if pruritus continues, she is advised if it persists could be something else, that might need a biopsy, she agrees to call. She is advised to get 1500 mg of calcium daily into her diet and supplements combined. We discussed the benefits of adequate vitamin D supplementation to at least 400 units daily, daily aerobic exercise of 30 minutes, and stress reduction. Monthly self breast exam was taught, and stressed, and is advised to call if she discovers any new mass in the breast. Seat belt use for herself and passengers advised. The significant health benefits of becoming and remainig fit, with an optimal BMI, were also discussed. We discussed the potential reduction in chronic discomfort, the diminished risks of hypertension, diabetes, and heart disease with the proper weight management, and improved mobility as she ages. Strategies to reach and maintain her target weight wer discussed in detail, all questions answered. Not available 03/01/2019 09:58:40 06/27/2020 [id number] learning about healthy weight nancy Not available 06/27/2020 13:20:41 She is here for annual exam, doing well, no menses since 09/2017. 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 Paps always normal. No menses since 09/2017. No vasomotor symptoms. 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 She is originally from [place]. , has two sons, out of house now, and a 17 year old daughter. She appears to be doing well. She is advised to get 1500 mg of calcium daily into her diet and supplements combined. We discussed the benefits of adequate vitamin D supplementation to at least 400 units daily, daily aerobic exercise of 30 minutes, and stress reduction. Monthly self breast exam was taught, and stressed, and is advised to call if she discovers any new mass in the breast. Seat belt use for herself and passengers advised. The significant health benefits of becoming and remainig fit, with an optimal BMI, were also discussed. We discussed the potential reduction in chronic discomfort, the diminished risks of hypertension, diabetes, and heart disease with the proper weight management, and improved mobility as she ages. Strategies to reach and maintain her target weight wer discussed in detail, all questions answered. Not available 06/27/2020 13:20:50 10/22/2021 [id number] learning about healthy weight Not available 10/22/2021 08:23:26 She is here for annual exam, doing well, no menses since 09/2017. Up to date on colonoscopy, to have mammo soon. She appears to be doing well. She is advised to get 1500 mg of calcium daily into her diet and supplements combined. We discussed the benefits of adequate vitamin D supplementation to at least 400 units daily, daily aerobic exercise of 30 minutes, and stress reduction. Monthly self breast exam was taught, and stressed, and is advised to call if she discovers any new mass in the breast. Not available 10/22/2021 08:23:31 02/03/2023 [id number] learning about healthy weight Not available 02/03/2023 09:22:28 She is here for annual exam, doing well, no menses since 09/2017. Up to date on colonoscopy. She had her mammogram in 10/07 in [place], while she was home for the holidays. She requests renewal of Aristocort for her lichen sclerosis. She appears to be doing well. Monthly self breast exam was taught, and stressed, and is advised to call if she discovers any new mass in the breast. Not available 02/03/2023 09:24:49 03/15/2024 [id number] atrophic vaginit is: care instructions Not available 03/15/2024 13:23:55 learning about healthy weight Not available 03/15/2024 13:23:55 She is here for annual, doing well. She needs a refill on her Aristocort. She has noted worsening urinary frequency and some dryness with intercourse. Note from 2022: She is here for annual exam, doing well, no menses since 09/2017. Up to date on colonoscopy. She had her mammogram in 10/07 in [place], while she was home for the holidays. She requests renewal of Aristocort for her lichen sclerosis. She appears to be doing well. Advised on vaginal estradiol, literature given to her for review, she will call if she wants to discuss this. Monthly self breast exam was taught, and stressed, and is advised to call if she discovers any new mass in the breast. Not available 03/15/2024 13:25:51 Reason for Referral None Reported. Results Created Date Observation Date Name Description Value Unit Range Abnormal Flag Note LastModifiedBy Organization Detail LastModifiedTime 06/27/2006/27/2020 fecal occul t blood , stool Occult Blood negati ve Not Available In-Office Order Internal Use Only DO Not Attach Compendium DO Not Attach Compendium, Do Not Delete/merge, [id number] 06/27/2020 13:19:43 03/01/2003/01/2019 fecal occul t blood , stool Occult Blood negati ve Not Available In-Office Order Internal Use Only DO Not Attach Compendium DO Not Attach Compendium, Do Not Delete/merge, [id number] 03/01/2019 08:37:39 03/01/2003/01/2019 pap, LB [id number] ThinP rep Pap, Image d: NEGAT HONG FOR SQUAM OUS INTRA EPITH ELIAL LESIO N AND NATANAEL ASENCIO . Justine Zapata , CT( CP) (Case elect krys ansley vannessa d 03 03 2019) ADEQU ACY: Satis facto ry Endoc ervic al/tr ansfo rmati on zone compo nent prese nt. SOURC E: ThinP rep Pap HPV IF ASCUS , Cervi vincent, Image d CLINI VINCENT INFOR MATIO N: HPV If Diagn osis of ASCUS . Z12.4 , V72.3 1, Z01.4 19, LPS >3 yrs = neg, Menop ause Not Available [facility], Cytopathology Service [address] [place], [address], 03/04/2019 08:16:24 06/27/20 20 06/27/2020 pap, [id number] ThinP rep Pap, Image d: NEGAT HONG FOR SQUAM OUS INTRA EPITH ELIAL LESIO N AND MALIG ELIF . Suzan Rojas , CT( CP) (Case elect krys panchal vannessa d 06 29 2020) ADEQU ACY: Satis facto ry Endoc ervic al/tr ansfo rmati on zone compo nent prese nt. SOURC E: ThinP rep Pap HPV IF ASCUS , Cervi vincent, Image d CLINI VINCENT INFOR MATIO N: HPV If Diagn osis of ASCUS . LPS NEG [Z12. 4, Z01.4 19] Not Available [facility], Cytopathology Service [address] [place], [address], 06/29/2020 12:34:09 10/22/19 22 10/22/2021 PAP1C ASE [id number] ThinP rep Pap, Image d: NEGAT HONG FOR SQUAM OUS INTRA EPITH ELIAL LESIO N AND MALIG ELIF . Note: The Pap test is a scree soha test with an inher ent false negat hong rate. Autom ated presc reeni ng of all liqui d based speci mens is perfo rmed by the ThinP rep Imagi ng Mateo kaur [facility] martha juárez , CT( CP) (Case elect krys panchal vannessa d 11 08 2021) ADEQU ACY: Satis facto ry Endoc ervic al/tr ansfo rmati on zone compo nent prese nt. SOURC E: ThinP rep Pap HPV IF Ascus : Refle x 16 and 18, Cervi vincent, Image d CLINI VINCENT INFOR MATIO N: HPV If Diagn osis of ASCUS . Z12.4 Not Available [facility], Cytopathology Service [address] [place], [address], 11/08/2021 17:00:54 10/22/19 22 10/22/2021 fecal occul t blood , stool Occult Blood negati ve Not Available In-Office Order Internal Use Only DO Not Attach Compendium DO Not Attach Compendium, Do Not Delete/merge, [id number] 10/22/2021 08:02:44 02/04/20 23 02/03/2023 [facility] CYTOL OGY results Patie nt Name: SYLVIA ELLIOTT nt : 1970 (Age: 52) Lab Acces giselle #: [id number] Colle ction Date: 2022 Acces giselle Date: 2022 Sign Out Date: 023 Tissu e Sourc e: 1: THINP REP INVESTOR RELATIONS ANALYST PAP TEST, CERVI VINCENT: Final Diagn osis: NEGAT HONG FOR INTRA EPITH ELIAL LESIO N OR MALIG ELIF . Satis facto ry for evalu ation . Endoc ervic al/tr ansfo rmati on zone prese nt. Clini vincent Histo ry: Date of Last Menst rual Perio d: not avail able Menst rual Histo ry: Post- menop ausal Contr acept hong Histo ry: not avail able Ancil lashell Testi ng: HPV (ASCU S) Case image d by the ThinP rep Imagi ng Syste m with rose martell rescr zay murrieta or ace w. Perfo rmed at [facility] ate Refer ence Labor atory depar tment of Cytol ogy, [address] [place] Clini vincent Histo ry (othe r): [id number] LPS 10-22 NEGAT HONG ROUTI NE SCREE N Phone #: [phone], On-Ca ll Patho logis t: [id number] Not Available [facility] (Centralized Electronic Ordering - All Locations) Patient Can Go To The Location Of Their Choice, [id number] 02/20/2023 15:07:29 02/04/20 23 02/03/2023 fecal occul t blood , stool Occult Blood negati ve Not Available In-Office Order Internal Use Only DO Not Attach Compendium DO Not Attach Compendium, Do Not Delete/merge, [id number] 02/03/2023 09:05:10 03/15/20 24 03/19/2024 IGP, RFX APTIM A HPV ASCU diagnosis: Koby PITTS FOR INTRA EPITH ELIAL LESIO N OR NATANAEL ASENCIO . CELLU LAR MACKAY ES ASSOC IATED WITH ATROP HY ARE PRESE NT. Not Available [facility] ([facility]) [address] [place], [address], 03/19/2024 14:06:26 03/15/20 24 03/19/2024 IGP, RFX APTIM A HPV ASCU specimen adequacy: Koby damon Satis facto ry for evalu ation . Endoc ervic al compo nent may not be disti nguis hed in cases of atrop hy. Not Available [facility] ([facility]) [address] [place], [address], 03/19/2024 14:06:26 03/15/20 24 03/19/2024 IGP, RFX APTIM A HPV ASCU clinician provided ICD10: Koby damon Z01.4 19 Not Available [facility] ([facility]) [address] [place], [address], 03/19/2024 14:06:26 03/15/20 24 03/19/2024 IGP, RFX APTIM A HPV ASCU performed by: Koby oden, Lilibeth damon (ASCP ) Not Available [facility] ([facility]) [address] [place], [address], 03/19/2024 14:06:26 03/15/20 24 03/19/2024 IGP, RFX APTIM A HPV ASCU . . Not Available [facility] ([facility]) [address] [place], [address], 03/19/2024 14:06:26 03/15/20 24 03/19/2024 IGP, RFX APTIM A HPV ASCU note: Commen t The Pap smear is a scree soha test desig dede to aid in the detec tion of kristy ligna nt and malig nant condi tions of the uteri ne cervi x. It is not a diagn ostic proce dure and shoul d not be used as the sole means of detec ting cervi vincent cance r. Both false -posi tive and false -nega tive repor ts do occur . Not Available [facility] ([facility]) [address] [facility], [place], [address], 03/19/2024 14:06:26 03/15/20 24 03/19/2024 IGP, RFX APTIM A HPV ASCU test methodology: Commen t This liqui d based ThinP rep(R ) pap test was scree dede with the use of an image guide d systcherry m. Not Available [facility] ([facility]) [address] [facility], [place], [address], 03/19/2024 14:06:26 03/15/20 24 03/19/2024 IGP, RFX APTIM A HPV ASCU . Commen t The HPV DNA refle x crite diane were not met with this speci men resul t there fore, no HPV testi ng was perfo rmed. Not Available [facility] ([facility]) [address] [facility], [place], [address], 03/19/2024 14:06:26 03/15/20 24 03/15/2024 hemog lobin , gastr ointe anna l, stool Occult Blood negati ve Not Available In-Office Order Internal Use Only DO Not Attach Compendium DO Not Attach Compendium, Do Not Delete/merge, [id number] 03/15/2024 13:08:03 04/27/20 19 04/27/2019 MAMMO , scree soha, digit al, bilat eral No observ ation record ed. [facility] Orders [address], [place], [address], 04/27/2019 11:24:29 Result Notes None recorded. Problems Name Problem SNOMED Code Status Onset Date Resolution Date Notes Provider Name and Address Organization Details Recorded Time Hypothyroidism 61573401 Active 2018 Milady fonseca [place] - [facility], 9 08:26:16 Genital lichen sclerosus 136870111 Active 2022 Alisa Arzola MD [address], [place], [address], [facility] - [facility], 3 09:21:55 Atrophic vaginitis 04449602 Active 2023 Alisa Arzola MD [address], [place], [address], [facility] - [facility], 4 13:19:58 Problem Notes None recorded. Procedures Surgical History Date Name Laterality Status Provider Name and Address Organization Details Recorded Time 3 Most Recent Mammogram completed Isabel Freeman in [facility], 02/03/2023 09:05:56 3 delivery completed Milady Freeman in [facility], 03/01/2019 08:33:04 Imaging Results Imaging Date Name Status LastModified by Organiz ation Details LastModified Time 04/27/2019 MAMMO, screening, digital, bilateral completed [facility] Orders [address] [facility] [address], [place], [address], 04/27/2019 11:24:29 Procedure Notes None recorded. Medical Equipment None Reported. Allergies No known drug allergies Medications Name Sig Start Date Stop Date Status Note LastModified by Organization Details LastModified Time amoxicillin 500 mg capsule 03/01 completed Not Available Not Available Not Available ibuprofen 800 mg tablet active Not Available Not Available Not Available prednisone 20 mg tablet 03/01 completed Not Available Not Available Not Available clindamycin HCl 150 mg capsule 03/01 completed Not Available Not Available Not Available levothyroxi ne 75 mcg tablet active Not Available Not Available Not Available ketorolac 0.5 % eye drops 03/15 completed Not Available Not Available Not Available doxycycline monohydrate 100 mg capsule 03/01 completed Not Available Not Available Not Available triamcinolo ne acetonide 0.1 % topical ointment Apply 1 applicati on twice a day by topical route as needed for 30 days. active Not Available Not Available No t Available chlorhexidi ne gluconate 0.12 % mouthwash 03/01 completed Not Available Not Available Not Available Vitals Date Recorded Heart rate Body height Body mass index (BMI) Body weight Systolic blood pressure Diastolic blood pressure Provider Name and Address Organization Details Last Updated DateTime 9 70 /min 170.18 cm 20.5 kg/m2 59656.6 g 115 mm[Hg] 70 mm[Hg] Milady Freeman in [facility], 9 08:24:05 Date Recorded Body height Body mass index (BMI) Body weight Body temperature Heart rate Systolic blood pressure Diastolic blood pressure Provider Name and Address Organization Details Last Updated DateTime 0 170.18 cm 21.3 kg/m2 73096.2 8 g 97.7 [degF] 67 /min 130 mm[Hg] 48 mm[Hg] Danae Freeman in [facility], 0 13:16:32 Date Recorded Body weight Body mass index (BMI) Body height Body temperature Heart rate Systolic blood pressure Diastolic blood pressure Provider Name and Address Organization Details Last Updated DateTime 2 79967.1 g 21 kg/m2 170.18 cm 97.4 [degF] 64 /min 108 mm[Hg] 51 mm[Hg] Isabel Freeman in [facility], 2 08:03:35 Date Recorded Body weight Body mass index (BMI) Body height Body temperature Heart rate Systolic blood pressure Diastolic blood pressure Provider Name and Address Organization Details Last Updated DateTime 3 21805.4 8 g 20.9 kg/m2 171.45 cm 97.4 [degF] 61 /min 124 mm[Hg] 64 mm[Hg] Isabel Freeman in [facility], 3 09:03:46 Date Recorded Body height Body mass index (BMI) Body weight Body temperature Heart rate Systolic blood pressure Diastolic blood pressure Provider Name and Address Organization Details Last Updated DateTime 4 171.45 cm 21.3 kg/m2 72192.4 7 g 98 [degF] 74 /min 105 mm[Hg] 50 mm[Hg] ene ospinaviktoriya Freeman in [facility], 4 13:04:29 Social History Question Answer Notes LastModified by Organization Details LastModified Time Tobacco Smoking Status Never Smoker Milady Dickerson [place] fonseca in [facility], 03/01/2019 08:28:58 Do You Have An Advance Directive? Yes Information not available 03/01/2019 What Is Your Level Of Alcohol Consumption? None Information not available 03/01/2019 What Is Your Level Of Caffeine Consumption? Occasional Rarely Information not available 06/27/2020 How Much Tobacco Do You Chew? None Information not available 03/01/2019 In The 14 Days Before Symptom Onset, Have You Had Close Contact With A Laboratory-conf irmed COVID-19 While That Case Was Ill? No Information not available 06/27/2020 In The 14 Days Before Symptom Onset, Have You Had Close Contact With A Person Who Is Under Investigation For COVID-19 While That Person Was Ill? No Information not available 06/27/2020 Have You Been To An Area Known To Be High Risk For COVID-19? No Information not available 06/27/2020 Are You Currently Employed? Yes Information not available 10/22/2021 What Type Of Diet Are You Following? REGULAR Information not available 03/01/2019 Which Illicit Or Recreational Drugs Have You Used? None Information not available 03/01/2019 Do You Reside In Or Have You Traveled To An Area Where Ebola Virus Transmission Is Active? No Information not available 03/01/2019 Do You Or Have You Ever Used E-cigarettes Or Vape? Never Used Electronic Cigarettes Information not available 06/27/2020 Education 12 Information not available 03/01/2019 What Is The Highest Grade Or Level Of School You Have Completed Or The Highest Degree You Have Received? 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 0 Information not available 03/01/2019 Are There Any Guns Present In Your Home? No Information not available 03/01/2019 High Number Of Sexual Partners No Information not available 03/01/2019 To Which Gender Do You Self-identify? Female Information not available 03/01/2019 Marital Status Informatio n not available 03/01/2019 What Was The Date Of Your Most Recent Tobacco Screening? 03/15/2024 [email or web address] Information not available 03/15/2024 What Is Your Relationship Status? Information not available 10/22/2021 Seat Belts Used Routinely Yes Information not available 03/01/2019 Are You Sexually Active? Yes Information not available 10/22/2021 Smoke Alarm In Home Yes Information not available 03/01/2019 At What Age Did You Start Smoking Tobacco? 0 Information not available 03/01/2019 Do You Or Have You Ever Used Smokeless Tobacco? Never Used Smokeless Tobacco Information not available 06/27/2020 How Much Tobacco Do You Smoke? No Information not available 03/01/2019 General Stress Level Low Information not available 06/27/2020 Do You Feel Stressed (tense, Restless, Nervous, Or Anxious, Or Unable To Sleep At Night)? [id number] Information not available 10/22/2021 Do You Use Any Illicit Or Recreational Drugs? No Information not available 10/22/2021 Do You Use Sunscreen Routinely? No Information not available 03/01/2019 How Many Years Have You Smoked Tobacco? 0 Information not available 03/01/2019 Have You Recently (within The Last 12 Weeks, Or During A Current ) Traveled To Or Lived In A Zika-affected Area? No Information not available 03/01/2019 Do You Or Have You Ever Used Any Other Forms Of Tobacco Or Nicotine? No Information not available 02/03/2023 Sex: Female Functional Status Question Answer Note LastModified by Organization D etails LastModified Time What is your exercise level? Moderate Information not available 03/01/2019 Mental Status None recorded. Family History Relationship Description Onset Age of this Age Resolved Age Notes LastModified by Organization Details LastModified Time Mother Hypothyroidi sm 68 from [place] c diseas e [email or web address] Not available 03/01/2019 08:28:04 Father Motor vehicle accident victim 49 [email or web address] Not available 2018 08:28:22 Medical History Condition Response Anesthesia complications N High Blood Pressure N Candidate for MyRisk panel N Autoimmune Condition N Depression N Lung Disease N Defects or Inherited Disease N History of Ovarian Cancer N BRCA testing in past N Anxiety Disorder N Arthritis N Infertility N History of Cancer N Endometriosis N Kidney or Bladder Problems N Thyroid Problems N GI Problems N Anemia Y History of Breast Cancer N STONE exposure N Osteopenia N Psychiatric Illness N Diabetes N Headaches or Migraines Y Asthma N Hepatitis N Heart Disease N Hypertension N Osteoporosis N Gynecological History Statement/Question Response If Post Menopausal, Age at Menopause 48 Date of LMP 09/15/2017 Menses Monthly N Age at Menarche 13 Most Recent Mammogram 09/16/2022 Age at First Child 23 Obstetrics History GPAL:G 3 P 3 0 0 3 Type Value Full Term 3 Living 3 Total 3 Immunizations Vaccine Type Date Status Note Provider Nam e and Address Organization Details Recorded Time COVID-19, mRNA, LNP-S, PF, 30 mcg/0.3 mL dose 07/03/2021 completed JANI Antunez in [facility], 02/03/2023 09:03:17 COVID-19, mRNA, LNP-S, PF, 30 mcg/0.3 mL dose 07/24/2021 completed JANI Antunez in [facility], 02/03/2023 09:03:17 Past Encounters Encounter ID Performer Location Encounter Start Date Encounter Closed Date Diagnosis/Indication Diagnosis SNOMED-CT Code Diagnosis ICD10 Code Diagnosis Note [id number] MD ALISA Meza MD [address] [facility] [address] [place] [address] 03/01/2019 08:15:03 03/01/2019 10:14:58 Specialized medical examination 43864363 Z01.419 Screening for malignant neoplasm of rectum 570392878 Z12.12 Screening mammography 24 604591 Z12.31 Lichen scl erosus et atrophicus 01893258 L90.0 [id number] MD ALISA Meza MD [address] [place] [address], [address] [place] [address] 06/27/2020 13:12:21 06/27/2020 13:54:13 Specialized medical examination 76072515 Z01.419 Screening for malignant neoplasm of rectum 880572132 Z12.12 Screening mammography 24 829185 Z12.31 [id number] MD ALISA Meza MD [address] [place] [address], [address] [place] [address] 10/22/2021 08:00:16 10/22/2021 10:18:42 Specialized medical examination 75787120 Z01.419 Screening for malignant neoplasm of rectum 437751496 Z12.12 Screening mammography 24 081951 Z12.31 [id number] MD ALISA Meza MD [address] [place] [address], [address] [place] [address] 02/03/2023 08:59:20 02/03/2023 10:39:17 Specialized medical examination 67048222 Z01.419 Screening for malignant neoplasm of rectum 072154125 Z12.12 Screening mammography 24 955473 Z12.31 Genital li beckwith sclerosus 377180033 L90.0 Lichen scl erosus et atrophicus 28558733 L90.0 [id number] MD ALISA Meza MD [address] [place] [address], [place] [place] [address] 03/15/2024 12:59:34 03/15/2024 14:31:08 Specialized medical examination 59749542 Z01.419 Screening for malignant neoplasm of rectum 153353637 Z12.12 Screening mammography 24 862855 Z12.31 Genital li beckwith sclerosus 927602354 L90.0 Atrophic vaginitis 21662 000 N95.2 Health Concerns Section Related Observation LastModified by Organization Detai ls LastModified Time None Recorded Concern Status LastModified by Organization Details LastModified Time None Recorded Advance Directives Directive Y: Payers Encounter Date Sequence Insurance Name Policy Number Policy Davis Covered Member ID Davis Member ID Guarantor Name 03/01/2019 1 MARY: O [facility] (O) [id number] Mahi Joon [id number] Mahi Joon 06/27/2020 1 [facility] [id number] Mahi Joon [id number] Mahi Joon 10/22/2021 1 [facility] [id number] Mahi Joon [id number] Mahi Joon 02/03/2023 1 [facility] [id number] Mahi Joon [id number] Mahi Joon 03/15/2024 1 [employer] (O) [id number] Mahi Joon [id number] Mahi Joon Notes Date Note Type Note Provider Name and Address Organization Details Recorded Time 03/01/2019 text/html She is here for annual exam as a new patient, 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 Paps always normal. No menses since 09/2017. No vasomotor symptoms. 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 She is originally from [place]. , has two sons, out of house now, and a 17 year old daughter. Alisa Arzola MD [address] [place] [address],[address], [place], [address], [place] [facility], 03/01/2019 09:59:07 06/27/2020 text/html She is here for annual exam, doing well, no menses since 09/2017. 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 Paps always normal. No menses since 09/2017. No vasomotor symptoms. 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 She is originally from [place]. , has two sons, out of house now, and a 17 year old daughter. Alisa Arzola MD [address], [place], [address], [place] [facility], 06/27/2020 13:37:44 10/22/2021 text/html She is here for annual exam, doing well, no menses since 09/2017. Up to date on colonoscopy, to have mammo soon. Alisa Arzola MD [address], [place], [address], [place] [facility], 10/22/2021 08:23:54 02/03/2023 text/html She is here for annual exam, doing well, no menses since 09/2017. Up to date on colonoscopy. She had her mammogram in 10/07 in [place], while she was home for the holidays. Alisa Arzola MD [address], [place], [address], [place] [facility], 02/03/2023 09:25:11 03/15/2024 text/html She is here for annual, doing well. She needs a refill on her Aristocort. She has noted worsening urinary frequency and some dryness with intercourse. Note from 2022: She is here for annual exam, doing well, no menses since 09/2017. Up to date on colonoscopy.She had her mammogram in 10/07 in [place], while she was home for the holidays.She requests renewal of Aristocort for her lichen sclerosis. Alisa Arzola MD [address], [place], [address], [place] [facility], 03/15/2024 13:26:16 OBGyn Episode No OBEpisode recorded.
== END 2024-12-13 15:37 | disposition home or self-care (01) ==
LOC: HO.HMCC 12:21
PROVIDERS: PCP Internal Medicine; Visit Provider Internal Medicine
DX: E03.9 Hypothyroidism, unspecified (principal); E78.5 Hyperlipidemia, unspecified; N83.209 Unspecified ovarian cyst, unspecified side; G44.209 Tension-type headache, unspecified, not intractable

== ENCOUNTER → 2024-12-13 12:21 | Outpatient (BNVA) | payer OTHER, SELFPAY | PROVIDERS: PCP Internal Medicine; Visit Provider Internal Medicine ==

== ENCOUNTER 2024-12-14 06:04 | Outpatient (REF) | payer OTHER, SELFPAY ==
[2024-12-14 10:24] LABS: Appearance Urine Clear; Color Urine Yellow; Glucose Urine UA Negative (Negative); Leukocyte Esterase Urine Small (1+) (Negative); Nitrite Urine Negative (Negative); Specific Gravity - Urine 1.015 (1.005-1.025); UMIC TRIGGER UA YES; Urine Blood Negative (Negative); Urine Ketones Negative (Negative); Urine Protein Negative (Neg-Trace)
[2024-12-14 10:26] LABS: MANUAL DIFF FLAG NO
[2024-12-14 10:40] LABS: Bacteria Urine None Seen (None Seen); Hyaline Casts Urine 0-2 /LPF (0-2); RBC Urine 0-2 /HPF (0-2); Squamous Epithelial Cell Urine 0-2 /HPF (0-2); WBC Urine 0-5 /HPF (0-5)
[2024-12-14 10:47] LABS: Basophils Percent Auto 0.8 % (0-2); Eosinophils Absolute Auto 0.7 X10*3/uL (0.0-0.4); Eosinophils Percent Auto 14.7 % (0-4); Hematocrit 36.4 % (37.0-47.0); Hemoglobin 12.3 g/dl (12.0-16.0); Imm Gran Abs Auto 0.01 X10*3/uL (0.00-0.03); Imm Gran Pct Auto 0.2 % (0.0-0.4); Lymphocytes Absolute Auto 1.3 X10*3/uL (1.2-4.9); Lymphocytes Percent Auto 27.1 % (20-40); Mean Corpuscular HGB Conc 33.8 g/dl (31.0-35.0); Mean Corpuscular Hemoglobin 30.4 pg (27.0-33.0); Mean Corpuscular Volume 90.1 fL (80.0-98.0); Mean Platelet Volume 11.2 fL (9.4-12.3); Monocytes Absolute Auto 0.5 X10*3/uL (0.1-1.2); Monocytes Percent Auto 9.2 % (2-11); Neutrophils Absolute Auto 2.4 x10*3/uL (2.0-8.3); Platelet Count 208 X10*3/uL (160-400); Red Blood Count 4.04 X10*6/uL (4.20-5.50); Red Cell Distribution Width 12.4 % (11.0-16.0); White Blood Count 4.9 X10*3/uL (4.8-10.8)
[2024-12-14 11:39] LABS: Folate 14.5 ng/mL (> or = 4.0); Vitamin B12 > 2000 pg/mL (200-900)
[2024-12-14 11:45] LABS: Alanine Aminotransferase 22 U/L (0-31); Alkaline Phosphatase 74 U/L (39-117); Anion Gap 8 (12-20); Aspartate Amino Transferase 31 U/L (5-31); Bilirubin Total 0.6 mg/dL (0.0-1.0); Blood Urea Nitrogen 14 mg/dL (9-16); Calcium 9.6 mg/dL (8.4-10.2); Carbon Dioxide 27 mmol/L (22-29); Chloride 105 mmol/L (96-108); Cholesterol 205 mg/dL (<200); Estimated Glomerular Filt Rate > 60; Glucose Fasting 81 mg/dL (60-99); HDL Cholesterol 70 mg/dL (>40); LDL Cholesterol Calculated 125 mg/dL (<100); Potassium 4.3 mmol/L (3.3-5.1); Sodium 136 mmol/L (135-145); TSH reflex Free T4 4.66 uIU/mL (0.32-4.0); Triglycerides 54 mg/dL (<150); Vitamin D 25-OH Total 42.3 ng/mL (>30)
[2024-12-14 12:33] LABS: Free T4 (Free Thyroxine) 1.04 ng/dL (0.71-1.85); Rheumatoid Factor 756.5 IU/mL (<15.0)
[2024-12-17 19:27] LABS: Cyclic Citrullinated Peptide 209 UNITS
== END 2024-12-14 06:05 | disposition home or self-care (01) ==
LOC: HO.HMGCLDS 06:04
PROVIDERS: PCP Internal Medicine; Visit Provider Internal Medicine
DX: E03.9 Hypothyroidism, unspecified (principal); E55.9 Vitamin D deficiency, unspecified; E53.8 Deficiency of other specified B group vitamins; E78.5 Hyperlipidemia, unspecified; R35.0 Frequency of micturition
CPT/HCPCS: 36415; 80053; 80061; 81001; 82306; 82607; 82746; 84439; 84443; 85025; 86200; 86431

== ENCOUNTER 2024-12-20 08:00 | Outpatient (AMB) | payer OTHER, SELFPAY ==
[2024-12-20 08:03] VITALS: BP 120/76; PULSE 78; TEMP 36.6; O2SAT 98; BMI 21.9
--- NOTE | 2024-12-20 08:03 | A.OFFPC_ITS ---
Vital Signs 12/20/24 08:03 Height 5 ft 7 in Weight 140 lb BMI 21.9 BP 120/76 Blood Pressure Location Lt brachial Position Sitting Pulse 78 Pulse Source Pulse Oximeter Temp 97.9 F Temp Source Oral Pulse Oximetry (%) 98 Oxygen Delivery Method Room Air Intake Visit Reasons: PE [employer]asting [employer]er Required: No Accompanied by: Self / Same As Patient Allergies No Known Allergies Allergy (Verified 12/20/24 08:04) Medication List - Last Reconciled 12/20/24 by Eli Iqbal MD levothyroxine 75 mcg PO DAILY Tobacco use date assessed: 12/13/24 Dental Screening Dental Screen Date: 12/20/24 Did you have a dental visit in the last 12 months?: Yes Did you have a dental problem in the last 6 months where you did not have access to dental care?: No Was dental information given to patient?: Patient has dentist HPI PE HPI Details Pt presents for PE. Pt c/o bilateral hand joints pain and stiffness lasting a few hours in the AM on and off. RF is very high. PFSH Medical History Hypothyroidism Hyperlipidemia Annual physical exam Surgical History No pertinent past surgical history Hx of colonoscopy Family History Father No problems noted. Mother Heart problem Social History Household Members Other:: , 2 sons(28. 22) and 1 daughter( 19), [facility] [place] Housing: House Patient Tobacco Use Status: Never used Tobacco e-Cigarette/Vaping Use: Never Used service: No Current occupational status: employed Cognitive needs: No Hearing needs: No Vision needs: Yes Questionnaire PHQ-9 Over the last 2 weeks, how often have you been bothered by any of the following problems? 1. Little interest or pleasure in doing things: not at all 2. Feeling down, depressed, or hopeless: not at all 3. Trouble falling or staying asleep, or sleeping too much: not at all 4. Feeling tired or having little energy: not at all 5. Poor appetite or overeating: not at all 6. Feeling bad about yourself - or that you are a failure or have let yourself or your family down: not at all 7. Trouble concentrating on things, such as reading the newspaper or watching television: not at all 8. Moving or speaking so slowly that other people could have noticed. Or the opposite - being so fidgety or restless that you have been moving around a lot more than usual: not at all 9. Thoughts that you would be better off or of hurting yourself in some way: not at all Total score: 0 Depression Screening Interpretation: Negative Depression Screening Done: Yes 62277 - PHQ-9 Billing: Yes Source: Developed by Drs. Wilberto Anton, Amber Martinez, Daniel Trammell and colleagues, with an educational alisa from [employer]. Thrive Questionnaire Date Thrive assessed: 12/20/24 I am a: Patient What is your living situation today?: I choose not to answer this question Within the past 12 months, did the food you bought not last and you didn't have the money to get more?: I choose not to answer this question Within the past 12 months, did you worry whether your food would run out before you got money to buy more?: I choose not to answer this question Do you have trouble paying for medicines?: I choose not to answer this question Do you have trouble getting transportation to medical appointments?: I choose not to answer this question Do you have trouble paying your heating and electricity bill?: I choose not to answer this question Do you have trouble taking care of your child, family member or friend?: I choose not to answer this question Do you have trouble with day-to-day activities such as bathing, preparing meals, shopping, managing finances, etc.?: I choose not to answer this question Are you currently unemployed and looking for a job?: I choose not to answer this question Are you interested in more education?: I choose not to answer this question Please select the resources that you would like help with: None Currently or been in a relationship where the following occur: I choose not to answer THRIVE Score: 0 AUDIT C Alcohol Use Questionnaire (AUDIT-C) 1. How often do you have a drink containing alcohol?: Never 3. How often do you have six or more drinks on one occasion?: Never Total Score: 0 Score Reviewed/Action Taken: Yes TYRESE-7 AMB Questionnaire TYRESE-7 Date TYRESE - 7 assessed: 12/20/24 Feeling nervous, anxious, or on edge: 0 = Not at all Not being able to stop or control worryin = Not at all Worrying too much about different things: 0 = Not at all Trouble relaxin = Not at all Being so restless that it is hard to sit still: 0 = Not at all Becoming easily annoyed or irritable: 0 = Not at all Feeling afraid as if something awful might happen: 0 = Not at all Total TYRESE-7 score (0-4 normal; 5-9 mild; 10-14 moderate; 15-21 severe): 0 Source: Developed by Drs. Wilberto Anton, Amber Martinez, Daniel pak nd colleagues, with an educational alisa from [employer]. TYRESE-7 Assessment Billing TYRESE-7 Assessment Tool: TYRESE-7 Assessment 85797 Review of Systems Const All systems reviewed & are unremarkable except as noted in HPI and below Reports no additional complaints Eyes Reports no additional complaints ENT Reports no additional complaints Card Reports no additional complaints Resp Reports no additional complaints Physical exam (Primary Care) Vital Signs: Last Vital Signs Temp 97.9 F 12/20/24 08:03 Pulse 78 12/20/24 08:03 BP 120/76 12/20/24 08:03 Pulse Ox 98 12/20/24 08:03 Oxygen Delivery Method Room Air 12/20/24 08:03 BMI result Body Mass Index 21.9 Tobacco/Smoking Status: Tobacco use Status Tobacco use date assessed 12/13/24 12/20/24 08:08 Patient Tobacco Use Status Never used Tobacco 12/20/24 08:08 e-Cigarette/Vaping Use Never Used 12/20/24 08:08 PHQ-9: PHQ-9 Score PHQ-9: Total score 0 12/20/24 08:13 Depression Screening Interpretation: Negative Thrive Assessment: Date of Thrive Assessment Date Thrive assessed 12/20/24 12/20/24 08:08 Currently or been in a relationship where the following occur: I choose not to answer Const General: no acute distress HENMT Head: Yes normal to inspection Ears: hearing grossly normal bilaterally Face and sinus: Yes normal facial exam Mouth: Normal oral and palatal mucosa present Throat: Yes posterior oropharynx normal Eyes General: appearance normal, both eyes and all related structures Neck Neck: Yes no lymphadenopathy and Yes supple Resp Effort & Inspection: normal respiratory effort Auscultation: clear to auscultation bilaterally Cardio Rhythm: regular rhythm Heart sounds: S1 normal heart sound present and S2 normal heart sound present GI Inspection: Yes normal to inspection Palpation (GI): Soft to palpation Percussion: Yes normal to percussion Auscultation: normal bowel sounds Coding Level of Care Code Est Pt Prev Care 40-64y(46631) Diagnoses Rheumatoid arthritis M06.9 Hypothyroidism E03.9 Annual physical exam Z00.00 Hyperlipidemia E78.5 Additional Codes TYRESE-7 Assessment Billing - TYRESE-7 Assessment Tool: TYRESE-7 Assessment 50877 ([id number]) PHQ-9 - 83306 - PHQ-9 Billing: Yes ([id number]) Assessment & Plan Assessment & Plan (1) Rheumatoid arthritis: Code(s): M06.9 - Rheumatoid arthritis, unspecified Category: Medical Plan: refer to rheumatology (2) Hypothyroidism: Code(s): E03.9 - Hypothyroidism, unspecified Category: Medical Plan: cont Levothyroxine (3) Annual physical exam: Code(s): Z00.00 - Encounter for general adult medical examination without abnormal findings Category: Medical Plan: well balanced diet, regular exercise discussed, pt will schedule mammogram, (4) Hyperlipidemia: Code(s): E78.5 - Hyperlipidemia, unspecified Category: Medical Plan: cont low cholesterol diet
--- OUTSIDE RECORDS SUMMARY | 2024-12-20 08:08 | XMS_ITS | Data Portability ---
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 Plan of Treatment Reminders Order Date Submit Date Provider Last Modified By Organization Details Last Modified Time Details Appointments None recorded. Lab cytology report, thin prep, smear or scraping, cervical or vaginal 2023 024 BEENA [facility] (Centralized Electronic Ordering - All Locations), Patient Can Go To The Location Of Their Choice, [id number] 4 14:06:27 hemoglobi n, gastroint estinal, stool 2023 024 [email or web address] 1 In-Office Order, Internal Use Only DO Not Attach Compendium DO Not Attach Compendium, Do Not Delete/merge, [id number] 4 13:23:58 pap test, thinprep, cervical 2022 023 [facility] (Centralized Electronic Ordering - All Locations), Patient Can Go To The Location Of Their Choice, [id number] 3 10:38:08 fecal occult blood, stool 2022 023 [email or web address] 1 In-Office Order, Internal Use Only DO Not Attach Compendium DO Not Attach Compendium, Do Not Delete/merge, [id number] 3 09:22:35 pap test, thinprep, cervical 2021 022 [email or web address] [facility], Cytopathology Service, [address] [place] [address], [address], 2 07:59:53 fecal occult blood, stool 2021 022 [email or web address] 1 In-Office Order, Internal Use Only DO Not Attach Compendium DO Not Attach Compendium, Do Not Delete/merge, [id number] 08:23:26 pap test, thinprep, cervical 2019 020 [email or web address] [facility], Cytopathology Service, [address] [place], [address], 0 08:23:10 fecal occult blood, stool 2019 020 [email or web address] In-Office Order, Internal Use Only DO Not Attach Compendium DO Not Attach Compendium, Do Not Delete/merge, [id number] 0 08:23:10 pap test, thinprep, cervical 2018 019 [facility], Cytopathology Service, [address] [place], [address], 9 08:16:24 fecal occult blood, stool 2018 019 [email or web address] In-Office Order, Internal Use Only DO Not Attach Compendium DO Not Attach Compendium, Do Not Delete/merge, [id number] 9 07:33:04 Referral None recorded. Procedures None recorded. Surgeries None recorded. Imaging MAMMO, screening , digital, bilateral - Breast Aspiratio n and/or Biopsy if needed 2023 024 [email or web address] [facility] Orders, [address], [place], [address], 4 14:31:08 MAMMO, screening , digital, bilateral - Breast Aspiratio n and/or Biopsy if needed 2022 023 [email or web address] [facility] Orders, [address], [address], [place], [address], 4 09:37:58 MAMMO, screening , digital, bilateral 2021 022 [facility] Orders, [address], [address], [place], [address], 3 07:48:17 MAMMO, screening , digital, bilateral [address] [facility] (Mammography), [address] , [place], [address], 2 07:45:13 MAMMO, screening , digital, bilateral 2018 019 [facility] Orders, [address], [place], [address], 9 11:09:44 Medication Orders triamcino lone acetonide 0.1 % topical ointment 2023 024 [facility], [address] [place], [address], 4 13:23:58 triamcino lone acetonide 0.1 % topical ointment [address] [facility] [address], [address] [place], [address], 4 13:05:12 triamcino lone acetonide 0.1 % topical ointment [address] [facility] [address], [address] [place], [address], 4 13:05:12 Patient TargetsNo targets recorded. 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 Paps always normal. No menses since 09/2017. No vasomotor symptoms. 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 She is originally from [place]. , has two sons, out of house [...] questions answered. Not available 03/01/2019 09:58:40 06/27/2020 [id number] learning about healthy weight nancy Not available 06/27/2020 13:20:41 She is here for annual exam, doing well, no menses since 09/2017. 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 Paps always normal. No menses since 09/2017. No vasomotor symptoms. 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 Not available 06/27/2020 13:20:50 10/22/2021 [id number] learning about healthy weight Not available 10/22/2021 [...] the breast. Not available 10/22/2021 08:23:31 02/03/2023 [id number] learning about healthy weight Not available 02/03/2023 09:22:28 She is here for annual exam, doing well, no menses since 09/2017. Up to date on colonoscopy. She had her mammogram in 10/07 in [place], while she was home for the holidays. She requests renewal of Aristocort for her lichen sclerosis. She appears to be doing well. Monthly self breast exam was taught, and stressed, and is advised to call if she discovers any new mass in the breast. Not available 02/03/2023 09:24:49 03/15/2024 [id number] atrophic vaginit is: care instructions Not available [...] She had her mammogram in 10/07 in [place], while she was home for the holidays. [...] DO Not Attach Compendium, Do Not Delete/merge, [id number] 06/27/2020 13:19:43 03/01/2003/01/2019 fecal occul t blood , stool Occult Blood negati ve Not Available In-Office Order Internal Use Only DO Not Attach Compendium DO Not Attach Compendium, Do Not Delete/merge, [id number] 03/01/2019 08:37:39 03/01/2003/01/2019 pap, LB [id number] ThinP rep Pap, Image d: NEGAT HONG [...] yrs = neg, Menop ause Not Available [facility], Cytopathology Service [address] [place], [address], 03/04/2019 08:16:24 06/27/20 20 06/27/2020 pap, LB [id number] ThinP rep Pap, Image d: NEGAT HONG [...] NEG [Z12. 4, Z01.4 19] Not Available [facility], Cytopathology Service [address] [place], [address], 06/29/2020 12:34:09 10/22/19 22 10/22/2021 PAP1C ASE [id number] ThinP rep Pap, Image d: NEGAT HONG FOR SQUAM OUS INTRA EPITH ELIAL LESIO N AND MALIG ELIF . Note: The Pap test is a scree soha test with an inher ent false negat hong rate. Autom ated presc reeni ng of all liqui d based speci mens is perfo rmed by the ThinP rep Imagi ng Mateo kaur [facility] martha juárez , CT( CP) (Case elect krys panchal vannessa d 11 08 2021) ADEQU ACY: Satis facto ry Endoc ervic al/tr ansfo rmati on zone compo nent prese nt. SOURC E: ThinP rep Pap HPV IF Ascus : Refle x 16 and 18, Cervi vincent, Image d CLINI VINCENT INFOR MATIO N: HPV If Diagn osis of ASCUS . Z12.4 Not Available [facility], Cytopathology Service [address] [place], [address], 11/08/2021 17:00:54 10/22/19 22 10/22/2021 fecal occul t blood , stool Occult Blood negati ve Not Available In-Office Order Internal Use Only DO Not Attach Compendium DO Not Attach Compendium, Do Not Delete/merge, [id number] 10/22/2021 08:02:44 02/04/20 23 02/03/2023 [facility] CYTOL OGY results Patie nt Name: SYLVIA ELLIOTT nt : 1970 (Age: 52) Lab Acces giselle #: [id number] Colle ction Date: 2022 Acces giselle Date: 2022 Sign Out Date: 023 Tissu e Sourc e: 1: THINP REP FILLER PICKER PAP TEST, CERVI VINCENT: Final Diagn osis: [...] murrieta or ace w. Perfo rmed at [facility] ate Refer ence Labor atory depar tment of Cytol ogy, [address] [place] Clini vincent Histo ry (othe r): [id number] LPS 10-22 NEGAT HONG ROUTI NE SCREE N Phone #: [phone], On-Ca ll Patho logis t: [id number] Not Available [facility] (Centralized Electronic Ordering - All Locations) Patient Can Go To The Location Of Their Choice, [id number] 02/20/2023 15:07:29 02/04/20 23 02/03/2023 fecal occul t blood , stool Occult Blood negati ve Not Available In-Office Order Internal Use Only DO Not Attach Compendium DO Not Attach Compendium, Do Not Delete/merge, [id number] 02/03/2023 09:05:10 03/15/20 24 03/19/2024 IGP, RFX APTIM A HPV ASCU diagnosis: Koby PITTS FOR INTRA EPITH ELIAL LESIO N OR NATANAEL ASENCIO . CELLU LAR MACKAY ES ASSOC IATED WITH ATROP HY ARE PRESE NT. Not Available [facility] ([facility]) [address] [place], [address], 03/19/2024 14:06:26 03/15/20 24 03/19/2024 IGP, RFX APTIM A HPV ASCU specimen adequacy: Koby damon Satis facto ry for evalu ation . Endoc ervic al compo nent may not be disti nguis hed in cases of atrop hy. Not Available [facility] ([facility]) [address] [place], [address], 03/19/2024 14:06:26 03/15/20 24 03/19/2024 IGP, RFX APTIM A HPV ASCU clinician provided ICD10: Koby damon Z01.4 19 Not Available [facility] ([facility]) [address] [place], [address], 03/19/2024 14:06:26 03/15/20 24 03/19/2024 IGP, RFX APTIM A HPV ASCU performed by: Koby oden, Lilibeth damon (ASCP ) Not Available [facility] ([facility]) [address] [place], [address], 03/19/2024 14:06:26 03/15/20 24 03/19/2024 IGP, RFX APTIM A HPV ASCU . . Not Available [facility] ([facility]) [address] [place], [address], 03/19/2024 14:06:26 03/15/20 24 03/19/2024 IGP, RFX [...] ts do occur . Not Available [facility] ([facility]) [address] [facility], [place], [address], 03/19/2024 14:06:26 03/15/20 24 03/19/2024 IGP, RFX APTIM A HPV ASCU test methodology: Commen t This liqui d based ThinP rep(R ) pap test was scree dede with the use of an image guide d systcherry m. Not Available [facility] ([facility]) [address] [facility], [place], [address], 03/19/2024 14:06:26 03/15/20 24 03/19/2024 IGP, RFX APTIM A HPV ASCU . Commen t The HPV DNA refle x crite diane were not met with this speci men resul t there fore, no HPV testi ng was perfo rmed. Not Available [facility] ([facility]) [address] [facility], [place], [address], 03/19/2024 14:06:26 03/15/20 24 03/15/2024 hemog lobin , gastr ointe anna l, stool Occult Blood negati ve Not Available In-Office Order Internal Use Only DO Not Attach Compendium DO Not Attach Compendium, Do Not Delete/merge, [id number] 03/15/2024 13:08:03 04/27/20 19 04/27/2019 MAMMO , scree soha, digit al, bilat eral No observ ation record ed. [facility] Orders [address], [place], [address], 04/27/2019 11:24:29 Result Notes None recorded. Problems Name Problem SNOMED Code Status Onset Date Resolution Date Notes Provider Name and Address Organization Details Recorded Time Hypothyroidism 54225943 Active 2018 Milady fonseca [place] - [facility], 9 08:26:16 Genital lichen sclerosus 720916861 Active 2022 Alisa Arzola MD [address], [place], [address], [facility] - [facility], 3 09:21:55 Atrophic vaginitis 43640652 Active 2023 Alisa Arzola MD [address], [place], [address], [facility] - [facility], 4 13:19:58 Problem Notes None recorded. Procedures Surgical History Date Name Laterality Status Provider Name and Address Organization Details Recorded Time 3 Most Recent Mammogram completed Isabel Freeman in [facility], 02/03/2023 09:05:56 3 delivery completed Milady Freeman in [facility], 03/01/2019 08:33:04 Imaging Results Imaging Date Name Status LastModified by Organiz ation Details LastModified Time 04/27/2019 MAMMO, screening, digital, bilateral completed [facility] Orders [address] [facility] [address], [place], [address], 04/27/2019 11:24:29 Procedure Notes None recorded. Medical [...] 9 70 /min 170.18 cm 20.5 kg/m2 80376.6 g 115 mm[Hg] 70 mm[Hg] Milady Freeman in [facility], 9 08:24:05 Date Recorded Body height Body mass index (BMI) Body weight Body temperature Heart rate Systolic blood pressure Diastolic blood pressure Provider Name and Address Organization Details Last Updated DateTime 0 170.18 cm 21.3 kg/m2 57426.2 8 g 97.7 [degF] 67 /min 130 mm[Hg] 48 mm[Hg] Danae Freeman in [facility], 0 13:16:32 Date Recorded Body weight Body mass index (BMI) Body height Body temperature Heart rate Systolic blood pressure Diastolic blood pressure Provider Name and Address Organization Details Last Updated DateTime 2 51473.1 g 21 kg/m2 170.18 cm 97.4 [degF] 64 /min 108 mm[Hg] 51 mm[Hg] Isabel Freeman in [facility], 2 08:03:35 Date Recorded Body weight Body mass index (BMI) Body height Body temperature Heart rate Systolic blood pressure Diastolic blood pressure Provider Name and Address Organization Details Last Updated DateTime 3 18833.4 8 g 20.9 kg/m2 171.45 cm 97.4 [degF] 61 /min 124 mm[Hg] 64 mm[Hg] Isabel Freeman in [facility], 3 09:03:46 Date Recorded Body height Body mass index (BMI) Body weight Body temperature Heart rate Systolic blood pressure Diastolic blood pressure Provider Name and Address Organization Details Last Updated DateTime 4 171.45 cm 21.3 kg/m2 94770.4 7 g 98 [degF] 74 /min 105 mm[Hg] 50 mm[Hg] ene ospinaviktoriya Freeman in [facility], 4 13:04:29 Social History Question Answer Notes LastModified by Organization Details LastModified Time Tobacco Smoking Status Never Smoker Milady Dickerson [place] fonseca in [facility], 03/01/2019 08:28:58 Do You Have An [...] Or The Highest Degree You Have Received? WB13157-3 Information not available 10/22/2021 What Is Your [...] Anxious, Or Unable To Sleep At Night)? [id number] Information not available 10/22/2021 Do You Use [...] for MyRisk panel N Autoimmune Condition N Kidney or Bladder Problems N Thyroid Problems N Depression N Lung Disease N GI Problems N Defects or Inherited Disease N Anemia Y History of Ovarian Cancer N History of Breast Cancer N STONE exposure N BRCA testing in past N Osteopenia N Psychiatric Illness N Anxiety Disorder N Diabetes N Arthritis N Headaches or Migraines Y Infertility N Asthma N History of Cancer N Endometriosis N Hepatitis N Heart Disease N Hypertension [...] mL dose 07/03/2021 completed JANI Antunez in [facility], 02/03/2023 09:03:17 COVID-19, mRNA, LNP-S, PF, 30 mcg/0.3 mL dose 07/24/2021 completed JANI Antunez in [facility], 02/03/2023 09:03:17 Past Encounters Encounter ID Performer Location Encounter Start Date Encounter Closed Date Diagnosis/Indication Diagnosis SNOMED-CT Code Diagnosis ICD10 Code Diagnosis Note [id number] MD ALISA Meza MD [address] [facility] [address] [place] [address] 03/01/2019 08:15:03 03/01/2019 10:14:58 Specialized medical examination 55013279 Z01.419 Screening for malignant neoplasm of rectum 351332228 Z12.12 Screening mammography 24 972596 Z12.31 Lichen scl erosus et atrophicus 96828279 L90.0 [id number] MD ALISA Meza MD [address] [place] [address], [address] [place] [address] 06/27/2020 13:12:21 06/27/2020 13:54:13 Specialized medical examination 15703663 Z01.419 Screening for malignant neoplasm of rectum 035820203 Z12.12 Screening mammography 24 044751 Z12.31 [id number] MD ALISA Meza MD [address] [place] [address], [address] [place] [address] 10/22/2021 08:00:16 10/22/2021 10:18:42 Specialized medical examination 24187468 Z01.419 Screening for malignant neoplasm of rectum 975298867 Z12.12 Screening mammography 24 491388 Z12.31 [id number] MD ALISA Meza MD [address] [place] [address], [address] [place] [address] 02/03/2023 08:59:20 02/03/2023 10:39:17 Specialized medical examination 98425664 Z01.419 Screening for malignant neoplasm of rectum 632768416 Z12.12 Screening mammography 24 366932 Z12.31 Genital li beckwith sclerosus 053494512 L90.0 Lichen scl erosus et atrophicus 36919051 L90.0 [id number] MD ALISA Meza MD [address] [place] [address], [place] [address] 03/15/2024 12:59:34 03/15/2024 14:31:08 Specialized medical examination 27916289 Z01.419 Screening for malignant neoplasm of rectum 397887466 Z12.12 Screening mammography 24 438746 Z12.31 Genital li beckwith sclerosus 531404211 L90.0 Atrophic vaginitis 43777 000 N95.2 Health Concerns Section Related Observation LastModified by Organization Detai ls LastModified Time None Recorded Concern Status LastModified by Organization Details LastModified Time None Recorded Advance Directives Directive Y: Payers Encounter Date Sequence Insurance Name Policy Number Policy Davis Covered Member ID Davis Member ID Guarantor Name 03/01/2019 1 MARY: O [facility] (O) [id number] Mahi Joon [id number] Mahi Joon 06/27/2020 1 [facility] [id number] Mahi Joon [id number] Mahi Joon 10/22/2021 1 [facility] [id number] Mahi Joon [id number] Mahi Joon 02/03/2023 1 [facility] [id number] Mahi Joon [id number] Mahi Joon 03/15/2024 1 [employer] (O) [id number] Mahi Joon [id number] Mahi Joon Notes Date Note Type Note Provider Name and Address Organization Details Recorded Time 03/01/2019 text/html She is here for annual exam as a new patient, 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 Paps always normal. No menses since 09/2017. No vasomotor symptoms. 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 She is originally from [place]. , has two sons, out of house now, and a 17 year old daughter. Alisa Arzola MD [address] [place] [address],[address], [place], [address], [place] [facility], 03/01/2019 09:59:07 06/27/2020 text/html She is here for annual exam, doing well, no menses since 09/2017. 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 Paps always normal. No menses since 09/2017. No vasomotor symptoms. 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 She is originally from [place]. , has two sons, out of house now, and a 17 year old daughter. Alisa Arzola MD [address], [place], [address], [place] - [facility], 06/27/2020 13:37:44 10/22/2021 text/html She is here for annual exam, doing well, no menses since 09/2017. Up to date on colonoscopy, to have mammo soon. Alisa Arzola MD [address], [place], [address], [place] - [facility], 10/22/2021 08:23:54 02/03/2023 text/html She is here for annual exam, doing well, no menses since 09/2017. Up to date on colonoscopy. She had her mammogram in 10/07 in [place], while she was home for the holidays. Alisa Arzola MD [address], [place], [address], [place] - [facility], 02/03/2023 09:25:11 03/15/2024 text/html She is here for annual, doing well. She needs a refill on her Aristocort. She has noted worsening urinary frequency and some dryness with intercourse. Note from 2022: She is here for annual exam, doing well, no menses since 09/2017. Up to date on colonoscopy.She had her mammogram in 10/07 in [place], while she was home for the holidays.She requests renewal of Aristocort for her lichen sclerosis. Alisa Arzola MD [address], [place], [address], [place] - [facility], 03/15/2024 13:26:16 OBGyn Episode No OBEpisode recorded.
== END 2024-12-20 09:27 | disposition home or self-care (01) ==
LOC: HO.HMCC 08:01
PROVIDERS: PCP Internal Medicine; Visit Provider Internal Medicine
DX: M06.9 Rheumatoid arthritis, unspecified (principal); E03.9 Hypothyroidism, unspecified; Z00.00 Encounter for general adult medical examination without abnormal findings; E78.5 Hyperlipidemia, unspecified

== ENCOUNTER → 2024-12-20 08:00 | Outpatient (BNVA) | payer OTHER, SELFPAY | PROVIDERS: PCP Internal Medicine; Visit Provider Internal Medicine | DX: Z00.00 Encounter for general adult medical examination without abnormal findings (principal); E03.9 Hypothyroidism, unspecified; M06.9 Rheumatoid arthritis, unspecified; E78.5 Hyperlipidemia, unspecified; Z79.899 Other long term (current) drug therapy | CPT/HCPCS: 96127 ==

== ENCOUNTER 2025-01-04 12:27 | Outpatient (REF) | payer OTHER, SELFPAY ==
--- NOTE | ~2025-01-04 | US_ITS ---
EXAMINATION: US PELVIS CLINICAL INFORMATION: Unspecified ovarian cyst, unspecified side. COMPARISON: None available. TECHNIQUE: Ultrasound of the pelvis is performed using both transabdominal and transvaginal transducers along with Doppler. Transvaginal imaging is performed due to inadequate visualization transabdominally. FINDINGS: Uterus: The uterus is anteverted and measures 5.6 x 3.2 x 4.2 cm. It is somewhat small. Normal-appearing cervix. As per the technologist note, the endometrium could not be well seen. It appeared somewhat ill-defined. The uterus is smooth in contour and has normal myometrial echogenicity. No visible fibroid. Adnexa: Both ovaries are visualized. There is normal color flow to the adnexa. There is no ovarian torsion. There is no pelvic ascites or fluid collection. Right ovary: Not seen. Left ovary measures 2.7 x 0.6 x 1.3 cm. Volume = 0.92 mL. Normal sonographic appearance. US/US pelvic and transvaginal IMPRESSION: 1. Somewhat limited exam. Small uterus with poorly defined and poorly visualized endometrium. 2. Right ovary could not be well visualized. 3. Normal left ovary. 4. No free fluid. Electronically signed by: Maxwell Hartley MD 01/05/2025 12:29 PM EDT
== END 2025-01-04 12:28 | disposition home or self-care (01) ==
LOC: HO.HMGCX 12:27
PROVIDERS: PCP Internal Medicine; Visit Provider Internal Medicine
DX: N83.209 Unspecified ovarian cyst, unspecified side (principal)
CPT/HCPCS: 76830; 76856

== ENCOUNTER → 2025-01-04 12:30 | Outpatient (BNV) | payer OTHER, SELFPAY | PROVIDERS: PCP Internal Medicine; Visit Provider Radiology Diagnostic Radiology | DX: N83.209 Unspecified ovarian cyst, unspecified side (principal) | CPT/HCPCS: 76830; 76856 ==

== ENCOUNTER 2025-03-09 10:04 | Outpatient (AMB) | payer OTHER, SELFPAY ==
[2025-03-09 10:07] VITALS: BP 110/68; PULSE 88; RESP 18; TEMP 36.8; O2SAT 97; BMI 21.8
--- NOTE | 2025-03-09 10:07 | MHC.PC.OV ---
Vital Signs 03/09/25 10:07 Height 5 ft 7 in Weight 139 lb BMI 21.8 BP 110/68 Blood Pressure Location Lt brachial Position Sitting Respiration 18 Pulse 88 Pulse Source Pulse Oximeter Temp 98.2 F Temp Source Oral Pulse Oximetry (%) 97 Oxygen Delivery Method Room Air Intake Visit Reasons: hand swelling Intake Note: Pt is here today for a sick visit. Pt c/o bilateral hand swelling Allergies No Known Allergies Allergy (Verified 03/09/25 10:08) Medication List - Last Reconciled 03/09/25 by Eli Iqbal MD levothyroxine 75 mcg PO DAILY Tobacco use date assessed: 03/09/25 Dental Screening Dental Screen Date: 03/09/25 Did you have a dental visit in the last 12 months?: Yes Did you have a dental problem in the last 6 months where you did not have access to dental care?: No Was dental information given to patient?: Patient has dentist HPI hand swelling HPI Details Patient presents complaining of both hands MCP joint swelling warmth and redness prolonged morning stiffness for the last few weeks. Symptoms last about 2-3 days. She is waiting follow-up appointment with financial solutions advisor with highly elevated rheumatoid factor patient has not been taking any medications. [facility] Medical History Hypothyroidism Hyperlipidemia Annual physical exam Surgical History No pertinent past surgical history Hx of colonoscopy Family History Father No problems noted. Mother Heart problem Social History Household Members Other:: , 2 sons(28. 22) and 1 daughter( 19), [employer] student Housing: House Patient Tobacco Use Status: Never used Tobacco e-Cigarette/Vaping Use: Never Used Second Hand Smoke Exposure: No service: No Current occupational status: employed Cognitive needs: No Hearing needs: No Vision needs: Yes Questionnaire Thrive Questionnaire Date Thrive assessed: 03/09/25 I am a: Patient What is your living situation today?: I choose not to answer this question Within the past 12 months, did the food you bought not last and you didn't have the money to get more?: I choose not to answer this question Within the past 12 months, did you worry whether your food would run out before you got money to buy more?: I choose not to answer this question Do you have trouble paying for medicines?: I choose not to answer this question Do you have trouble getting transportation to medical appointments?: I choose not to answer this question Do you have trouble paying your heating and electricity bill?: I choose not to answer this question Do you have trouble taking care of your child, family member or friend?: I choose not to answer this question Do you have trouble with day-to-day activities such as bathing, preparing meals, shopping, managing finances, etc.?: I choose not to answer this question Are you currently unemployed and looking for a job?: I choose not to answer this question Are you interested in more education?: I choose not to answer this question Please select the resources that you would like help with: None Currently or been in a relationship where the following occur: I choose not to answer THRIVE Score: 0 AUDIT C Alcohol Use Questionnaire (AUDIT-C) 1. How often do you have a drink containing alcohol?: Never 3. How often do you have six or more drinks on one occasion?: Never Total Score: 0 TYRESE-7 AMB Questionnaire TYRESE-7 Date TYRESE - 7 assessed: 03/09/25 Feeling nervous, anxious, or on edge: 0 = Not at all Not being able to stop or control worryin = Several days Worrying too much about different things: 1 = Several days Trouble relaxin = Not at all Being so restless that it is hard to sit still: 0 = Not at all Becoming easily annoyed or irritable: 0 = Not at all Feeling afraid as if something awful might happen: 0 = Not at all Total TYRESE-7 score (0-4 normal; 5-9 mild; 10-14 moderate; 15-21 severe): 2 Source: Developed by Drs. Wilberto Anton, Amber Martinez, Daniel Trammell and colleagues, with an educational alisa from [employer]. TYRESE-7 Assessment Billing TYRESE-7 Assessment Tool: TYRESE-7 Assessment 82478 Review of Systems Const All systems reviewed & are unremarkable except as noted in HPI and below Eyes Reports no additional complaints ENT Reports no additional complaints Card Reports no additional complaints Resp Reports no additional complaints GI Reports no additional complaints Physical exam (Primary Care) Vital Signs: Last Vital Signs Temp 98.2 F 03/09/25 10:07 Pulse 88 03/09/25 10:07 Resp 18 03/09/25 10:07 BP 110/68 03/09/25 10:07 Pulse Ox 97 03/09/25 10:07 Oxygen Delivery Method Room Air 03/09/25 10:07 BMI result Body Mass Index 21.8 Tobacco/Smoking Status: Tobacco use Status Tobacco use date assessed 03/09/25 03/09/25 10:09 Patient Tobacco Use Status Never used Tobacco 03/09/25 10:09 e-Cigarette/Vaping Use Never Used 03/09/25 10:08 Thrive Assessment: Date of Thrive Assessment Date Thrive assessed 03/09/25 03/09/25 10:09 Currently or been in a relationship where the following occur: I choose not to answer Const General: no acute distress HENMT Face and sinus: Yes normal facial exam Eyes General: appearance normal, both eyes and all related structures Resp Effort & Inspection: normal respiratory effort Auscultation: clear to auscultation bilaterally Cardio Rhythm: regular rhythm Heart sounds: S1 normal heart sound present and S2 normal heart sound present Extrem Other: Bilateral MCP joint swelling redness and tenderness mainly 2nd and 3rd fingers Coding Level of Care Code Est Pt Level 3 (75794) Diagnoses Rheumatoid arthritis M06.9 Additional Codes TYRESE-7 Assessment Billing - TYRESE-7 Assessment Tool: TYRESE-7 Assessment 03379 ([id number]) Assessment & Plan Assessment & Plan (1) Rheumatoid arthritis: Code(s): M06.9 - Rheumatoid arthritis, unspecified Category: Medical Plan: Patient has an appointment with financial solutions advisor in [place] 2 months. Treatment options including NSAIDs short course of prednisone discussed with the patient. She up to try [id number] ibuprofen and will be [facility] Orders: Referrals Rheumatology Referral M06.9 - Rheumatoid arthritis, unspecified
--- OUTSIDE RECORDS SUMMARY | 2025-03-09 11:34 | XMS_ITS | Data Portability ---
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 Plan of Treatment Reminders Order Date Submit Date Provider Last Modified By Organization Details Last Modified Time Details Appointments ANNUAL EXAM 2024 11:00A M Alisa Arzola MD Not available Not available Not available Lab cytology report, thin prep, smear or scraping , cervical or vaginal 2023 024 BEENA [facility] (Centralized Electronic Ordering - All Locations), Patient Can Go To The Location Of Their Choice, [id number] 03/19/2024 14:06:27 hemoglob in, gastroin testinal , stool 2023 024 [email or web address] 1 In-Office Order, Internal Use Only DO Not Attach Compendium DO Not Attach Compendium, Do Not Delete/merge, [id number] 03/15/2024 13:23:58 pap test, thinprep , cervical 2022 023 [facility] (Centralized Electronic Ordering - All Locations), Patient Can Go To The Location Of Their Choice, [id number] 02/25/2023 10:38:08 fecal occult blood, stool 2022 023 [email or web address] 1 In-Office Order, Internal Use Only DO Not Attach Compendium DO Not Attach Compendium, Do Not Delete/merge, [id number] 02/03/2023 09:22:35 pap test, thinprep , cervical 2021 022 [email or web address] [facility], Cytopathology Service, [address] [place], [address], 11/12/2021 07:59:53 fecal occult blood, stool 2021 022 [email or web address] 1 In-Office Order, Internal Use Only DO Not Attach Compendium DO Not Attach Compendium, Do Not Delete/merge, [id number] 10/22/2021 08:23:26 [facility] test, thinprep , cervical [facility], [address] [place], [address], 07/04/2020 08:23:10 fecal occult blood, stool 2019 020 [email or web address] In-Office Order, Internal Use Only DO Not Attach Compendium DO Not Attach Compendium, Do Not Delete/merge, [id number] 07/04/2020 08:23:10 pap test, thinprep , cervical 2018 019 BEENA [facility], Cytopathology Service, [address] [place], [address], 03/04/2019 08:16:24 fecal occult blood, stool 2018 019 [email or web address] In-Office Order, Internal Use Only DO Not Attach Compendium DO Not Attach Compendium, Do Not Delete/merge, [id number] 03/08/2019 07:33:04 Referral None recorded . Procedures None recorded . Surgeries None recorded . Imaging MAMMO, screenin g, digital, bilatera l - Breast Aspirati on and/or Biopsy if needed 2023 024 [facility] Orders, [address], [place], [address], 03/15/2024 14:31:08 MAMMO, screenin g, digital, bilatera l - Breast Aspirati on and/or Biopsy if needed 2022 023 [facility], [address], [place], [address], 01/24/2025 07:34:26 MAMMO, screenin g, digital, bilatera l 2021 022 [facility] Imaging Orders, [address], [place], [address], 02/14/2023 07:48:17 MAMMO, screenin g, digital, bilatera l 2019 020 [facility] (Mammography), [address] [facility], [place], [address], 06/17/2022 07:45:13 MAMMO, screenin g, digital, bilatera l 2018 019 [facility] Imaging Orders, [address], [place], [address], 04/27/2019 11:09:44 Medication Orders triamcin olone acetonid e 0.1 % topical ointment 2023 024 [facility], [address] [place], [address], 03/15/2024 13:23:58 triamcin olone acetonid e 0.1 % topical ointment [address] [facility] [address], [address] [place], [address], 03/15/2024 13:05:12 triamcin olone acetonid e 0.1 % topical ointment [address] [facility] [address], [address] [place], [address], 03/15/2024 13:05:12 Patient TargetsNo targets recorded. 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 Paps always normal. No menses since 09/2017. No vasomotor symptoms. 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 RX Aristocort, call if pruritus continues, she is advised [...] questions answered. Not available 03/01/2019 09:58:40 06/27/2020 [id number] learning about healthy weight [email or web address] Not available 06/27/2020 13:20:41 She is here for annual exam, doing well, no menses since 09/2017. _ note from 2019: She is here for annual exam as a new patient, 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 Paps always normal. No menses since 09/2017. No vasomotor symptoms. 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 Not available 06/27/2020 13:20:50 10/22/2021 [id number] learning about healthy weight Not available 10/22/2021 [...] the breast. Not available 10/22/2021 08:23:31 02/03/2023 [id number] learning about healthy weight Not available 02/03/2023 [...] the breast. Not available 02/03/2023 09:24:49 03/15/2024 [id number] atrophic vaginit is: care instructions Not available 03/15/2024 13:23:55 learning about healthy weight nancy Not available 03/15/2024 13:23:55 She is here for annual, doing well. She needs a refill on her Aristocort. She has noted worsening urinary frequency and some dryness with intercourse. Note from 2022: She is here for annual exam, doing well, no menses since 09/2017. Up to date on colonoscopy. She had her mammogram in 10/07 in [place], while she was home for the holidays. She requests renewal of Aristocort for her lichen sclerosis. She appears to be doing well. Advised on vaginal estradiol, literature given to her for review, she will call if she wants to discuss this. Monthly self breast exam was taught, and stressed, and is advised to call if she discovers any new mass in the breast. nancy Not available 03/15/2024 13:25:51 Reason for Referral None Reported. Results Created Date Observation Date Name Description Value Unit Range Abnormal Flag Note LastModifiedBy Organization Detail LastModifiedTime 06/27/2006/27/2020 fecal occul t blood , stool Occult Blood negati ve Not Available In-Office Order Internal Use Only DO Not Attach Compendium DO Not Attach Compendium, Do Not Delete/merge, [id number] 06/27/2020 13:19:43 03/01/20 19 03/01/2019 fecal occul t blood , stool Occult Blood negati ve Not Available In-Office Order Internal Use Only DO Not Attach Compendium DO Not Attach Compendium, Do Not Delete/merge, [id number] 03/01/2019 08:37:39 03/01/20 19 03/01/2019 pap, LB [id number] ThinP rep Pap, Image d: NEGAT HONG FOR SQUAM OUS INTRA EPITH ELIAL MIKE Mclain AND NATANAEL ASENCIO . Justine Zapata , CT( CP) (Case elect krys panchal vannessa d 03 03 2019) ADEQU ACY: Satis facto ry Endoc ervic al/tr ansfo rmati on zone compo nent prese nt. SOURC E: ThinP rep Pap HPV IF ASCUS , Cervi [place], Image d CLINI [place] INFOR MATIO N: HPV If Diagn osis of ASCUS . Z12.4 , V72.3 1, Z01.4 19, LPS >3 yrs = neg, Menop ause Not Available [facility], Cytopathology Service [address] [place], [address], 03/04/2019 08:16:24 06/27/20 20 06/27/2020 pap, LB [id number] ThinP rep Pap, Image d: NEGAT HONG FOR SQUAM OUS INTRA EPITH ELIAL LESIO N AND MALIG ELIF . Suzan Rojas CT( CP) (Case elect krys panchal vannessa d 06 29 2020) ADEQU ACY: Satis facto ry Endoc ervic al/tr ansfo rmati on zone compo nent prese nt. SOURC E: ThinP rep Pap HPV IF ASCUS , Cerv[place], Image d [facility] [place] INFOR MATIO N: HPV If Diagn osis of ASCUS . LPS NEG [Z12. 4, Z01.4 19] Not Available [facility], Cytopathology Service [address] [place], [address], 06/29/2020 12:34:09 10/22/19 22 10/22/2021 PAP1C ASE [id number] ThinP rep Pap, Image d: NEGAT HONG FOR SQUAM OUS INTRA EPITH ELIAL LESIO N AND MALIG ELIF . Note: The Pap test is a scree soha test with an inher ent false negat hong rate. Autom ated presc reeni ng of all liqui d based speci mens is perfo rmed by the ThinP rep Imagi ng Syste ronny carolina arriola state martha juárez , CT( CP) (Case elect krys panchal vannessa d 11 08 2021) ADEQU ACY: Satis facto ry Endoc ervic al/tr ansfo rmati on zone compo nent prese nt. SOURC E: ThinP rep Pap HPV IF Ascus : Refle x 16 and 18, Cervi [place], Image d [facility] [place] IN[facility] N: HPV If Diagn osis of ASCUS . 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 Satis facto ry for evalu ation . Endoc ervic al/tr ansfo rmati on zone prese nt. Clini [place] Histo ry: Date of Last Menst rual Perio d: not avail able Menst rual Histo ry: Post- menop ausal Contr acept hong Histo ry: not avail able Ancil lashell Testi ng: HPV (ASCU S) Case image d by the ThinP rep Imagi ng Syste m with rose martell rescr zay murrieta or ace peace. Perfo rmed at [facility] ate Refer ence Labor atory depar tment of Cytol ogy, [address] [place] Clini [place] Histo ry (othe r): [id number] LPS 10-22 NEGAT HONG ROUTI NE SCREE N Phone #: [phone], On-Ca ll Patho logis t: [id number] Not Available [facility] (Centralized Electronic Ordering - All Locations) Patient Can Go To The Location Of Their Choice, [id number] 02/20/2023 15:07:29 02/04/20 23 02/03/2023 fecal occul t blood , stool Occult Blood negati ve Not Available In-Office Order Internal Use Only DO Not Attach Compendium DO Not Attach Compendium, Do Not Delete/merge, [id number] 02/03/2023 09:05:10 03/15/20 24 03/19/2024 IGP, RFX APTIM A HPV ASCU diagnosis: Koby PITTS FOR INTRA EPITH ELIAL LESIO N OR NATANAEL ASENCIO . CELLU LAR MACKAY ES ASSOC IATED WITH ATROP HY ARE PRESE NT. Not Available [facility] ([facility]) [address] [place], [address], 03/19/2024 14:06:26 03/15/20 24 03/19/2024 IGP, RFX APTIM A HPV ASCU specimen adequacy: Koby damon Satis facto ry for evalu ation . Endoc ervic al compo nent may not be disti nguis hed in cases of atrop hy. Not Available [facility] ([facility]) [address] [place], [address], 03/19/2024 14:06:26 03/15/20 24 03/19/2024 IGP, RFX APTIM A HPV ASCU clinician provided ICD10: Koby damon Z01.4 19 Not Available [facility] ([facility]) [address] [place], [address], 03/19/2024 14:06:26 03/15/20 24 03/19/2024 IGP, RFX APTIM A HPV ASCU performed by: Koby oden, Lilibeth damon (ASCP ) Not Available [facility] ([facility]) [address] [place], [address], 03/19/2024 14:06:26 03/15/20 24 03/19/2024 IGP, RFX APTIM A HPV ASCU . . Not Available [facility] ([facility]) [address] [place], [address], 03/19/2024 14:06:26 03/15/20 24 03/19/2024 IGP, RFX [...] the sole means of detec ting cervi [place] cance r. Both false -posi tive and false -nega tive repor ts do occur . Not Available [facility] ([facility]) [address] [facility], [place], [address], 03/19/2024 14:06:26 03/15/20 24 03/19/2024 IGP, RFX APTIM A HPV ASCU test methodology: Commen t This liqui d based ThinP rep(R ) pap test was scree dede with the use of an image guide d syste m. Not Available [facility] ([facility]) [address] [place], [address], 03/19/2024 14:06:26 03/15/20 24 03/19/2024 IGP, RFX APTIM A HPV ASCU . Commen t The HPV DNA refle x crite diane were not met with this speci men resul t there fore, no HPV testi ng was perfo rmed. Not Available [facility] ([facility]) [address] [facility], [place], [address], 03/19/2024 14:06:26 03/15/20 24 03/15/2024 hemog lobin , gastr ointe anna l, stool Occult Blood negati ve Not Available In-Office Order Internal Use Only DO Not Attach Compendium DO Not Attach Compendium, Do Not Delete/merge, [id number] 03/15/2024 13:08:03 04/27/20 19 04/27/2019 MAMMO , scree soha, digit al, bilat eral No observ ation record ed. [facility] Imaging Orders [address], [place], [address], 04/27/2019 11:24:29 Result Notes None recorded. Problems Name Problem SNOMED Code Status Onset Date Resolution Date Notes Provider Name and Address Organization Details Recorded Time Hypothyroidism 95940454 Active 2018 JANI Concepcion in [facility], 9 08:26:16 Genital lichen sclerosus 091313680 Active 2022 Alisa Arzola MD [address], [place], [address], [facility] - [facility] in [facility], 3 09:21:55 Atrophic vaginitis 34944502 Active 2023 Alisa Arzola MD [address], [place], [address], [facility], 4 13:19:58 Problem Notes None recorded. Procedures Surgical History Date Name Laterality Status Provider Name and Address Organization Details Recorded Time 3 Most Recent Mammogram completed Isabel Freeman in [facility], 02/03/2023 09:05:56 3 delivery completed Milady Freeman [facility], 03/01/2019 08:33:04 Imaging Results None recorded. Procedure Notes None recorded. Medical Equipment None [...] Not Available Not Available Vitals Date Recorded Body weight Body mass index (BMI) Body height Body temperature Heart rate Systolic blood pressure Diastolic blood pressure Provider Name and Address Organization Details Last Updated DateTime 2 88676.1 g 21 kg/m2 170.18 cm 97.4 [degF] 64 /min 108 mm[Hg] 51 mm[Hg] Isabel Freeman in [facility], 2 08:03:35 Date Recorded Body weight Body mass index (BMI) Body height Body temperature Heart rate Systolic blood pressure Diastolic blood pressure Provider Name and Address Organization Details Last Updated DateTime 3 50917.4 8 g 20.9 kg/m2 171.45 cm 97.4 [degF] 61 /min 124 mm[Hg] 64 mm[Hg] Isabel Freeman in [facility], 3 09:03:46 Date Recorded Heart rate Body height Body mass index (BMI) Body weight Systolic blood pressure Diastolic blood pressure Provider Name and Address Organization Details Last Updated DateTime 9 70 /min 170.18 cm 20.5 kg/m2 66690.6 g 115 mm[Hg] 70 mm[Hg] Milady Freeman in [facility], 9 08:24:05 Date Recorded Body height Body mass index (BMI) Body weight Body temperature Heart rate Systolic blood pressure Diastolic blood pressure Provider Name and Address Organization Details Last Updated DateTime 4 171.45 cm 21.3 kg/m2 29727.4 7 g 98 [degF] 74 /min 105 mm[Hg] 50 mm[Hg] ene Freeman in [facility], 4 13:04:29 Date Recorded Body height Body mass index (BMI) Body weight Body temperature Heart rate Systolic blood pressure Diastolic blood pressure Provider Name and Address Organization Details Last Updated DateTime 0 170.18 cm 21.3 kg/m2 14504.2 8 g 97.7 [degF] 67 /min 130 mm[Hg] 48 mm[Hg] Danae Ade [facility], 0 13:16:32 Social History Question Answer Notes LastModified by Organizat ion Details LastModified Time Tobacco Smoking Status Never Smoker Milady Dickerson JANI fonseca in [facility], 03/01/2019 08:28:58 Do You Have An Advance Directive? Yes Information not available 03/01/2019 What Is Your Level Of Caffeine Consumption? Occasional Rarely Information not available 06/27/2020 How Much Tobacco Do You Chew? None Information not available 03/01/2019 In The 14 Days Before Symptom Onset, Have You Had Close Contact With A Laboratory-confir med COVID-19 While That Case Was Ill? No Information not available 06/27/2020 In The 14 Days Before Symptom Onset, Have You Had Close Contact With A Person Who Is Under Investigation For COVID-19 While That Person Was Ill? No Information not available 06/27/2020 Have You Been To An Area Known To Be High Risk For COVID-19? No Information not available 06/27/2020 What Type Of Diet Are You Following? REGULAR Information not available 03/01/2019 Which Illicit Or Recreational Drugs Have You Used? None Information not available 03/01/2019 Do You Reside In Or Have You Traveled To An Area Where Ebola Virus Transmission Is Active? No Information not available 03/01/2019 Education 12 Information no t available 03/01/2019 What Is The Highest Grade Or Level Of School You Have Completed Or The Highest Degree You Have Received? [id number] Information not available 10/22/2021 How Many Days In The Past Year Have You Had A Heavy Drinking Consumption (4+ Female, 5+ Male)? 0 Information no t available 03/01/2019 Are There Any Guns Present In Your Home? No Information not available 03/01/2019 High Number Of Sexual Partners No Information not available 03/01/2019 To Which Gender Do You Self-identify? Female Information not available 03/01/2019 Marital Status [email or web address] Informatio n not available 03/01/2019 What Was [...] Smoking Tobacco? 0 Information not available 03/01/2019 How Much Tobacco Do You Smoke? No Information not available 03/01/2019 General Stress Level Low Information not available 06/27/2020 Do You Use Sunscreen Routinely? No Information not available 03/01/2019 How Many Years Have You Smoked Tobacco? 0 [employer] Information not available 03/01/2019 Have You Recently (within The Last 12 Weeks, Or During A Current ) Traveled To Or Lived In A Zika-affected Area? No [email or web address] Information not available 03/01/2019 Sex: Female Functional Status Question Answer Note LastModified by Organization Details LastModified Time Do you use any illicit or recreational drugs? No Information not available 10/22/2021 Do you or have you ever used any other forms of tobacco or nicotine? No Information not available 02/03/2023 What is your level of alcohol consumption? None Information not available 03/01/2019 Do you or have you ever used smokeless tobacco? Never used smokeless tobacco Information not available 06/27/2020 Are you currently employed? 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 Never used electronic cigarettes Information not available 06/27/2020 What is your exercise level? Moderate Information not available 03/01/2019 Mental Status Question Answer Note LastModified by Organization D etails LastModified Time Do you feel stressed (tense, restless, nervous, or anxious, or unable to sleep at night)? [id number] Information not available 10/22/2021 Family History Relationship Description Onset Age of this Age Resolved Age Notes LastModified by Organization Details LastModified Time Mother Ireneyroidmadison patterson 68 from [place] diseas e mpotorski [...] Immunizations Vaccine Type Date Status Note Provider Gomez e and Address Organization Details Recorded Time COVID-19, mRNA, LNP-S, PF, 30 mcg/0.3 mL dose 07/03/2021 completed JANI Antunez in [facility], 02/03/2023 09:03:17 COVID-19, mRNA, LNP-S, PF, 30 mcg/0.3 mL dose 07/24/2021 completed JANI Antunez in [facility], 02/03/2023 09:03:17 Past Encounters Encounter ID Performer Location Encounter Start Date Encounter Closed Date Diagnosis/Indication Diagnosis SNOMED-CT Code Diagnosis ICD10 Code Diagnosis Note [id number] MD ALISA Meza MD [address] [facility] [place] [phone] 03/01/2019 08:15:03 03/01/2019 10:14:58 Specialized medical examination 54712258 Z01.419 Screening for malignant neoplasm of rectum 057881840 Z12.12 Screening mammography 24 887879 Z12.31 Lichen scl erosus et atrophicus 14417055 L90.0 [id number] MD ALISA Meza MD [address] [place] [address], [address] [place] [id number] 06/27/2020 13:12:21 06/27/2020 13:54:13 Specialized medical examination 04589469 Z01.419 Screening for malignant neoplasm of rectum 795931299 Z12.12 Screening mammography 24 799202 Z12.31 [id number] MD ALISA Meza MD [address] [place] [address], [address] [place] [id number] 10/22/2021 08:00:16 10/22/2021 10:18:42 Specialized medical examination 70276001 Z01.419 Screening for malignant neoplasm of rectum 512710736 Z12.12 Screening mammography 24 668570 Z12.31 [id number] MD ALISA Meza MD [address] [place] [address], [address] [place] [id number] 02/03/2023 08:59:20 02/03/2023 10:39:17 Specialized medical examination 35186538 Z01.419 Screening for malignant neoplasm of rectum 968105385 Z12.12 Screening mammography 24 220531 Z12.31 Genital li beckwith sclerosus 776529100 L90.0 Lichen scl erosus et atrophicus 11348840 L90.0 [id number] MD ALISA Meza MD [address] [place] [address], [address] [place] [id number] 03/15/2024 12:59:34 03/15/2024 14:31:08 Specialized medical examination 88434466 Z01.419 Screening for malignant neoplasm of rectum 743680904 Z12.12 Screening mammography 24 683922 Z12.31 Genital li beckwith sclerosus 164006816 L90.0 Atrophic vaginitis 32863 000 N95.2 Health Concerns Section Related Observation LastModified by Organization Detai ls LastModified Time None Recorded Concern Status LastModified by Organization Details LastModified Time None Recorded Advance Directives Directive Y: Payers Insurance Date Sequence Insurance Name Policy Number Policy Davis Covered Member ID Davis Member ID Guarantor Name 06/27/2020 1 [place] [facility] [id number] Mahi Dupree [id number] Mahi Dupree 03/15/2024 1 [employer]ET[employer]ONZALE[employer] (O) [id number] Mahi Hunteri [id number] Mahi Hunteri 03/15/2024 1 [facility] [id number] Mahi Dupree [id number] Mahi Dupree Notes Date Note Type Note Provider Name and Address Organization Details Recorded Time 03/01/2019 text/html She is here for annual exam as a new patient, 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 Paps always normal. No menses since 09/2017. No vasomotor symptoms. 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 She is originally from [place]. , has two sons, out of house now, and a 17 year old daughter. Alisa Arzola MD [address] [facility],[address], [place], [address], [place] [facility], 03/01/2019 09:59:07 06/27/2020 text/html She is here for annual exam, doing well, no menses since 09/2017. note from 2019: She is here for annual exam as a new patient, 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 Paps always normal. No menses since 09/2017. No vasomotor symptoms. 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 She is originally from [place]. , has two sons, out of house now, and a 17 year old daughter. Alisa Arzola MD [address], [place], [address], [place] [facility], 06/27/2020 13:37:44 10/22/2021 text/html She is here for annual exam, doing well, no menses since 09/2017. Up to date on colonoscopy, to have mammo soon. Alisa Arzola MD [address], [place], [address], [facility] - [facility], 10/22/2021 08:23:54 02/03/2023 text/html She is here for annual exam, doing well, no menses since 09/2017. Up to date on colonoscopy. She had her mammogram in 10/07 in [place], while she was home for the holidays. Alisa Arzola MD [address], [place], [address], [place] [facility], 02/03/2023 09:25:11 03/15/2024 text/html She is here for annual, doing well. She needs a refill on her Aristocort. She has noted worsening urinary frequency and some dryness with intercourse. Note from 2022: She is here for annual exam, doing well, no menses since 09/2017. Up to date on colonoscopy.She had her mammogram in 10/07 in [place], while she was home for the holidays.She requests renewal of Aristocort for her lichen sclerosis. Alisa Arzola MD [address], [place], [id number], [place] - [facility], 03/15/2024 13:26:16 OBGyn Episode No OBEpisode recorded.
== END 2025-03-09 13:55 | disposition home or self-care (01) ==
PROVIDERS: PCP Internal Medicine; Visit Provider Internal Medicine
DX: M06.9 Rheumatoid arthritis, unspecified (principal)

== ENCOUNTER → 2025-03-09 10:04 | Outpatient (BNVA) | payer OTHER, SELFPAY | PROVIDERS: PCP Internal Medicine; Visit Provider Internal Medicine | DX: M25.642 Stiffness of left hand, not elsewhere classified (principal); M25.641 Stiffness of right hand, not elsewhere classified; M06.9 Rheumatoid arthritis, unspecified | CPT/HCPCS: 96127 ==

== ENCOUNTER 2025-04-28 08:57 | Outpatient (REF) | payer OTHER, SELFPAY ==
[2025-04-28 11:48] LABS: Free T4 (Free Thyroxine) 1.15 ng/dL (0.71-1.85)
== END 2025-04-28 08:58 | disposition home or self-care (01) ==
LOC: HO.HMGCLDS 08:57
PROVIDERS: PCP Internal Medicine; Visit Provider Internal Medicine
DX: E03.9 Hypothyroidism, unspecified (principal)
CPT/HCPCS: 36415; 84439; 84443; 85652